=== PATIENT | male | born 1955 | race African-American/Black ===

== ENCOUNTER 2018-06-05 11:42 | Emergency (ER) | payer MEDICAID, OTHER ==
[~2018-06-05] VITALS: Ht 193 cm; Wt 77.3 kg
[2018-06-05] MEDS ORDERED: LORazepam 1 MG tablet PO ONE (11:55)
[2018-06-05 12:07] LABS: BASOPHILS % (AUTO) 0.3 % (0-1); EOSINOPHILS % (AUTO) 0.6 % (0-6); HEMATOCRIT 39.5 % (42.0-52.0); HEMOGLOBIN 13.1 g/dl (14.0-17.9); LYMPHOCYTES # (AUTO) 0.7 X10'3 (1.1-4.8); LYMPHOCYTES % (AUTO) 9.8 % (21-51); MEAN CORPUSCULAR HEMOGLOBIN 29.4 PG (27.0-31.0); MEAN CORPUSCULAR VOLUME 88.9 FL (78-98); MEAN PLATELET VOLUME 8.2 FL (7.4-10.4); MONOCYTES # (AUTO) 0.2 X10'3 (0-0.9); MONOCYTES % (AUTO) 3.1 % (2-12); NEUTROPHILS # (AUTO) 6.2 X10'3 (1.8-7.7); NEUTROPHILS % (AUTO) 86.2 % (42-75); PLATELET COUNT 209 X10'3 (140-440); RED BLOOD COUNT 4.45 X10'6 (4.70-6.10); RED CELL DISTRIBUTION WIDTH 15.5 % (11.5-14.5); WHITE BLOOD COUNT 7.2 X10'3 (4.5-11.0)
[2018-06-05 12:24] LABS: ALANINE AMINOTRANSFERASE 28 U/L (12-78); ALBUMIN 3.8 G/DL (3.4-5.0); ALBUMIN/GLOBULIN RATIO 0.8 (1.1-1.5); ALKALINE PHOSPHATASE 66 IU/L (46-116); ANION GAP 9 (8-16); ASPARTATE AMINO TRANSFERASE 27 U/L (10-37); BILIRUBIN,TOTAL 0.3 MG/DL (0.1-1.0); BLOOD UREA NITROGEN 20 MG/DL (7-18); CALCIUM 9.4 MG/DL (8.5-10.1); CHLORIDE 103 MMOL/L (99-107); CREATININE 1.05 MG/DL (0.60-1.10); GLUCOSE 167 MG/DL (70-104); POTASSIUM 3.7 MMOL/L (3.5-5.1); SODIUM 141 MMOL/L (135-145); TOTAL CARBON DIOXIDE 29.5 MMOL/L (24-32); TOTAL PROTEIN 8.3 G/DL (6.4-8.2); eGFR 72 ML/MIN
[2018-06-05 12:33] LABS: ETHANOL < 0.010 GM/DL (0.0-0.010)
[2018-06-05] MEDS: OLANZapine 2.5MG tablet PO SCH (14:11)
[2018-06-05 14:40] LABS: CLARITY,URINE CLEAR (Clear); COLOR,URINE YELLOW (Yellow); GLUCOSE, URINE NEGATIVE (Neg); KETONES,URINE NEGATIVE (Neg); LEUKOCYTE ESTERASE ,URINE NEGATIVE (Neg); NITRITES, URINE NEGATIVE (Neg); OCCULT BLOOD,URINE NEGATIVE (Neg); PH,URINE 6.5 (4.8-8.0); PROTEIN,URINE 30 mg/dl (Neg); UROBILINOGEN,URINE 0.2 E.U/dL (0.2-1.0)
[2018-06-05 14:43] LABS: UA COLLECTION TYPE CLN CATCH MIDSTREAM
[2018-06-05 14:49] LABS: BACTERIA,URINE FEW /HPF (Neg); RBC,URINE 0-2 /HPF (0-2); SQUAMOUS EPITHELIAL CELL,UR FEW /LPF (FEW); WBC,URINE 0-4 /HPF (0-4)
[2018-06-05 15:00] LABS: URINE AMPHETAMINE SCREEN NEGATIVE (Neg); URINE BARBITUATE SCREEN NEGATIVE (Neg); URINE BENZODIAZEPINES SCREEN NEGATIVE (Neg); URINE CANNABINOID SCREEN NEGATIVE (Neg); URINE COCAINE SCREEN NEGATIVE (Neg); URINE METHADONE SCREEN NEGATIVE (Neg); URINE OPIATE SCREEN NEGATIVE (Neg); URINE PHENCYCLIDINE SCREEN NEGATIVE (Neg)
--- NOTE | 2018-06-05 18:31 | NUR ---
pt has been sleeping most of day. has been cooperative, polite. now eating dinner.
--- NOTE | 2018-06-05 18:40 | NUR ---
pt ate all of his dinner, then an additional turkey sandwich.
--- NOTE | 2018-06-05 19:31 | NUR ---
pt is resting in bed quietly
--- NOTE | 2018-06-06 02:54 | NUR ---
Patient continues to sleep comfortably on his right side.
--- NOTE | 2018-06-06 04:42 | NUR ---
Patient continues to sleep comfortably.
--- NOTE | 2018-06-06 05:37 | NUR ---
No change. Patient continues to sleep.
--- NOTE | 2018-06-06 08:00 | NUR ---
Pt eating breakfast with no distress noted.
[2018-06-06] MEDS: OLANZapine 2.5MG tablet PO SCH (08:29)
--- NOTE | 2018-06-06 10:00 | NUR ---
Pt sleeping on right side.
--- NOTE | 2018-06-06 11:20 | NUR ---
Pt adjusting bed, no distress noted.
[2018-06-06] MEDS ORDERED: AMLO10TA PO (11:41)
--- NOTE | 2018-06-06 12:30 | NUR ---
Pt eating lunch without any issues.
--- NOTE | 2018-06-06 14:00 | NUR ---
Pt sleeping on left side no distress noted.
--- NOTE | 2018-06-06 16:00 | NUR ---
Pt sleeping on back no distress noted.
--- NOTE | 2018-06-06 17:02 | NUR ---
Pt sent over to [facility] no issues noted.
--- NOTE | 2018-06-06 17:15 | NUR ---
Accepted patient from [facility]. Report given to Jayesh WHARTON by Benito Correa RN.
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
--- NOTE | 2018-06-06 22:27 | NUR ---
PT RESTING IN BED ON RIGHT SIDE. NO S/S OF DISTRESS OR PAIN. WILL CONTINUE TO MONITOR.
--- NOTE | 2018-06-07 00:07 | NUR ---
Patient is resting in bed with no s/s of distress or pain. Will continue to monitor.
--- NOTE | 2018-06-07 01:08 | NUR ---
pt got up to use restroom, then back to bed. pt is lying on left side resting quietly. rr normal, unlabored.
--- NOTE | 2018-06-07 03:59 | NUR ---
pt is up to use restroom, then back to bed.
--- NOTE | 2018-06-07 05:02 | NUR ---
pt appears to be sleeping, lying on left side. breathing is normal, will continue to monitor.
[2018-06-07 05:46] VITALS: BP 136/88
--- NOTE | 2018-06-07 06:30 | NUR ---
Patient up to BR, ambulatory, steady gait and then back to bed laying on right side. No distress observed. Continue to monitor.
--- NOTE | 2018-06-07 07:50 | NUR ---
Patient up and asking about breakfast. RN states he will have breakfast soon. Continue to monitor.
[2018-06-07] MEDS: OLANZapine 2.5MG tablet PO SCH (08:55)
--- NOTE | 2018-06-07 09:55 | NUR ---
Patient sleeping on left side. No distress observed. Continue to monitor.
--- NOTE | 2018-06-07 11:51 | NUR ---
Patient sleeping supine. No distress observed. Continue to monitor.
--- NOTE | 2018-06-07 13:19 | NUR ---
relieving RN for lunch, pt is eating lunch, claudine well, no n/v
--- NOTE | 2018-06-07 13:37 | NUR ---
pt has been accepted at [facility] by Dr Goodrich, [facility] parts driver will be here approx [phone]
[2018-06-07] MEDS ORDERED: amLODIPine 5mg tablet PO ONE (20:00)
[2018-06-08] MEDS ORDERED: amLODIPine 5mg tablet PO SCH (08:00)
== END 2018-06-07 14:32 ==
LOC: ER 11:42
DX: F25.0 Schizoaffective disorder, bipolar type (principal); F60.0 Paranoid personality disorder; F22 Delusional disorders; R00.0 Tachycardia, unspecified; Z59.0 Homelessness; Z88.8 Allergy status to other drugs, medicaments and biological substances
CPT/HCPCS: 36415; 80053; 80305; 80320; 81001; 84443; 85025; 99285

== ENCOUNTER 2018-09-30 12:41 | Inpatient (IN) | payer MEDICAID ==
[~2018-09-30] VITALS: Ht 193 cm; Wt 83.2 kg
[~2018-09-30 12:41] MED LIST: AMLO10TA PO
[2018-09-30] MEDS ORDERED: loperamide 2mg capsule PO PRN (15:15)
[2018-09-30] MEDS ORDERED: acetaminophen 325mg tablet PO PRN ×2 (15:15)
[2018-09-30] MEDS ORDERED: magnesium hydroxide 30ml (MOM) UD suspension PO PRN (15:15)
[2018-09-30] MEDS ORDERED: mag hydrox/Alum hydrox/simeth 30ml oral suspension PO PRN (15:15)
[2018-09-30] MEDS ORDERED: tuberculin, purif. prot. deriv. 5 units/0.1ml ID ONE (15:15)
[2018-09-30 17:08] VITALS: BP 151/98
[2018-09-30] MEDS ORDERED: ARIP400S3 IM (17:15)
[2018-09-30] MEDS ORDERED: OLAN20TA3 PO (17:15)
[2018-09-30] MEDS ORDERED: QUET25TA PO (17:15)
[2018-09-30] MEDS ORDERED: QUET50TA PO (17:15)
[2018-09-30] MEDS ORDERED: PROP40TA72 PO (17:17)
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
[2018-09-30 19:55] VITALS: BP 120/78
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
[2018-10-01 07:00] VITALS: BP 134/87
[2018-10-01 07:32] LABS: CHOLESTEROL 176 MG/DL (0-200); HDL CHOLESTEROL 59 MG/DL (35-60); LDL CHOLESTEROL 107 MG/DL (50-100); TRIGLYCERIDES 50 MG/DL (20-135)
[2018-10-01 07:58] LABS: HEMOGLOBIN A1C 5.4 % (4.5-6.2)
[2018-10-01 08:00] VITALS: BP 134/87
[2018-10-01] MEDS: amLODIPine 5mg tablet PO SCH (08:54)
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
[2018-10-01] MEDS ORDERED: tuberculin, purif. prot. deriv. 5 units/0.1ml ID ONE (14:40)
[2018-10-01 20:00] VITALS: BP 143/87
[2018-10-01] MEDS: risperiDONE 0.5mg tablet PO SCH (20:41)
[2018-10-01] MEDS ORDERED: QUEtiapine 25mg tablet PO SCH (21:00)
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
[2018-10-02 07:17] VITALS: BP 126/80
[2018-10-02] MEDS: HYDROchlorothiazide 12.5mg capsule PO SCH (08:07)
[2018-10-02] MEDS: amLODIPine 5mg tablet PO SCH (08:07)
[2018-10-02] MEDS: propranolol 40mg tablet PO SCH (08:08)
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
[2018-10-02 20:03] VITALS: BP 131/85
[2018-10-02] MEDS: risperiDONE 0.5mg tablet PO SCH (20:25)
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
[2018-10-03 07:05] VITALS: BP 126/87
[2018-10-03] MEDS: propranolol 40mg tablet PO SCH (08:21)
[2018-10-03] MEDS: amLODIPine 5mg tablet PO SCH (08:21)
[2018-10-03] MEDS: HYDROchlorothiazide 12.5mg capsule PO SCH (08:21)
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
[2018-10-03 20:00] VITALS: BP 127/81
[2018-10-03] MEDS: hydrOXYzine 25 MG tablet PO PRN (20:35)
[2018-10-03] MEDS ORDERED: risperiDONE 0.5mg tablet PO SCH (21:00)
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
[2018-10-04] MEDS: amLODIPine 5mg tablet PO SCH (07:45)
[2018-10-04] MEDS: HYDROchlorothiazide 12.5mg capsule PO SCH (07:45)
[2018-10-04] MEDS: propranolol 40mg tablet PO SCH (07:45)
[2018-10-04 08:00] VITALS: BP 128/77
[2018-10-04] MEDS: LORazepam 1 MG tablet PO PRN ×2 (13:43→20:42)
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
[2018-10-04] MEDS ORDERED: risperiDONE 2mg tablet PO SCH (20:00)
[2018-10-04] MEDS: hydrocortisone 1% cream 28gm TP SCH (20:32)
[2018-10-04] MEDS: olanzapine 10mg tablet PO SCH (20:32)
[2018-10-04 20:38] VITALS: BP 139/90
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
[2018-10-05 07:24] VITALS: BP 131/85
[2018-10-05] MEDS: risperiDONE 2mg tablet PO SCH (07:29)
[2018-10-05] MEDS: HYDROchlorothiazide 12.5mg capsule PO SCH (07:30)
[2018-10-05] MEDS: hydrocortisone 1% cream 28gm TP SCH ×2 (07:30→20:18)
[2018-10-05] MEDS: amLODIPine 5mg tablet PO SCH (07:30)
[2018-10-05] MEDS: propranolol 40mg tablet PO SCH (07:30)
[2018-10-05] MEDS ORDERED: risperiDONE 0.5mg tablet PO SCH (08:00)
[2018-10-05] MEDS ORDERED: aripiprazole 400mg suspension ER syringe IM SCH (09:00)
--- NOTE | 2018-10-05 16:00 | NUR ---
Discharge Planning: Barbra from [facility] Office phoned requesting status update on pt. This expert medical writer answered her questions and provided current treatment and progress status information on pt. Alpa Holloway, [facility]
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
[2018-10-05] MEDS: olanzapine 10mg tablet PO SCH (20:18)
[2018-10-05] MEDS: hydrOXYzine 25 MG tablet PO PRN (20:19)
[2018-10-05 20:20] VITALS: BP 133/89
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
[2018-10-06 07:41] VITALS: BP 122/76
[2018-10-06] MEDS: amLODIPine 5mg tablet PO SCH (07:44)
[2018-10-06] MEDS: propranolol 40mg tablet PO SCH (07:45)
[2018-10-06] MEDS: HYDROchlorothiazide 12.5mg capsule PO SCH (07:45)
[2018-10-06] MEDS: risperiDONE 2mg tablet PO SCH (07:45)
[2018-10-06] MEDS: hydrocortisone 1% cream 28gm TP SCH ×2 (07:46→20:49)
[2018-10-06] MEDS ORDERED: risperiDONE 0.25mg tablet PO ONE (08:00)
[2018-10-06] MEDS ORDERED: risperiDONE 0.5mg tablet PO ONE (09:10)
--- NOTE | 2018-10-06 13:02 | NUR ---
Initial: Pt admit with psychosis. Pt currently on regular diet with documented 75-100% PO intake meeting nutrient needs. [facility] 10/06. No edema or wounds. No nutrition diagnosis at this time. Will continue to follow. Recommendations: 1) Continue regular diet 2) Weekly wt Addendum: 10/06/18 at [address] Amended: Links added.
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
[2018-10-06] MEDS: hydrOXYzine 25 MG tablet PO PRN (16:58)
[2018-10-06 20:00] VITALS: BP 113/75
[2018-10-06] MEDS: olanzapine 10mg tablet PO SCH (20:49)
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
[2018-10-07 07:55] VITALS: BP 125/80
[2018-10-07] MEDS: hydrocortisone 1% cream 28gm TP SCH ×2 (08:00→20:00)
[2018-10-07] MEDS: amLODIPine 5mg tablet PO SCH (08:01)
[2018-10-07] MEDS: HYDROchlorothiazide 12.5mg capsule PO SCH (08:01)
[2018-10-07] MEDS: propranolol 40mg tablet PO SCH (08:02)
[2018-10-07] MEDS: risperiDONE 2mg tablet PO SCH (08:02)
--- NOTE | 2018-10-07 09:57 | NUR ---
REFERRAL: SW faxed completed packet to [facility] for pt transition to lower level of continuing care. SW placed referral and fax confirmation in front of pt medical chart for easy access and reference. Late note entry for 10/04/2018 Rajani Corona, Arcade Game Technician JUNIOR BOOKKEEPER [id number] Supervised by Alfredo Gold, [id number]
--- NOTE | 2018-10-07 10:01 | NUR ---
[facility] REFERRAL: SW informed pt would be staffed for Whole Person Care on 10/09/2018, per Myesha Lewis. Rajani Corona, Metal Mold Dresser HIGH SCHOOL LIBRARY MEDIA SPECIALIST [id number] Supervised by Alfredo Gold, [id number]
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
[2018-10-07 19:55] VITALS: BP 123/79
[2018-10-07] MEDS: olanzapine 10mg tablet PO SCH (21:09)
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
[2018-10-08 07:30] VITALS: BP 133/81
[2018-10-08] MEDS: HYDROchlorothiazide 12.5mg capsule PO SCH (07:40)
[2018-10-08] MEDS: amLODIPine 5mg tablet PO SCH (07:40)
[2018-10-08] MEDS: propranolol 40mg tablet PO SCH (07:40)
[2018-10-08] MEDS: risperiDONE 2mg tablet PO SCH (07:44)
[2018-10-08] MEDS: hydrocortisone 1% cream 28gm TP SCH ×2 (08:00→20:00)
--- NOTE | 2018-10-08 14:43 | NUR ---
[facility] REFERRAL: SHERITA contacted Fernanda at [facility] at [phone], who reports a bed will be available for pt on , October 11 for pt. SHERITA informed provider, who plans to begin IM medication for pt within next 24-48 hours. Per Fernanda, pt admission to [facility] should be planned for morning. Rajani Corona, Well Service Floor Worker SPECIAL EDUCATION RESOURCE ROOM TEACHER [id number] Supervised by Alfredo Gold, [id number]
[2018-10-08] MEDS ORDERED: [UNRECOGNIZED DRUG - OTHER] IM ONE (15:40)
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
[2018-10-08 20:00] VITALS: BP 136/92
[2018-10-08] MEDS: olanzapine 10mg tablet PO SCH (20:54)
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
[2018-10-09 07:07] VITALS: BP 126/79
[2018-10-09] MEDS: propranolol 40mg tablet PO SCH (07:56)
[2018-10-09] MEDS: HYDROchlorothiazide 12.5mg capsule PO SCH (07:57)
[2018-10-09] MEDS: amLODIPine 5mg tablet PO SCH (07:58)
[2018-10-09] MEDS: risperiDONE 0.5mg tablet PO SCH (07:58)
[2018-10-09] MEDS: hydrocortisone 1% cream 28gm TP SCH ×2 (08:00→20:00)
[2018-10-09] MEDS ORDERED: [UNRECOGNIZED DRUG - OTHER] IM ONE (09:00)
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
[2018-10-09] MEDS: LORazepam 1 MG tablet PO PRN (18:14)
[2018-10-09 20:00] VITALS: BP 116/68
[2018-10-09] MEDS: olanzapine 10mg tablet PO SCH (21:02)
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
[2018-10-10] MEDS: propranolol 40mg tablet PO SCH (07:46)
[2018-10-10] MEDS: HYDROchlorothiazide 12.5mg capsule PO SCH (07:47)
[2018-10-10] MEDS: amLODIPine 5mg tablet PO SCH (07:47)
[2018-10-10] MEDS: risperiDONE 0.5mg tablet PO SCH (07:47)
[2018-10-10 08:00] VITALS: BP 137/91
[2018-10-10] MEDS: hydrocortisone 1% cream 28gm TP SCH ×2 (08:00→20:00)
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
[2018-10-10 20:42] VITALS: BP 113/70
[2018-10-10] MEDS: olanzapine 10mg tablet PO SCH (21:04)
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
[2018-10-11 07:31] VITALS: BP 133/88
[2018-10-11] MEDS: HYDROchlorothiazide 12.5mg capsule PO SCH (07:39)
[2018-10-11] MEDS: propranolol 40mg tablet PO SCH (07:39)
[2018-10-11] MEDS: hydrocortisone 1% cream 28gm TP SCH (07:40)
[2018-10-11] MEDS: amLODIPine 5mg tablet PO SCH (07:40)
[2018-10-11] MEDS: risperiDONE 0.5mg tablet PO SCH (07:40)
[2018-10-11] MEDS ORDERED: AMLO10TA PO (08:06)
[2018-10-11] MEDS ORDERED: HYDR12.5 PO (08:06)
[2018-10-11] MEDS ORDERED: RISP3TAB3 PO ×2 (08:06)
[2018-10-11] MEDS ORDERED: PROP40TA72 PO (08:06)
--- NOTE | 2018-10-11 11:35 | NUR ---
DISCHARGE NOTE The patient was discharged at 1135. 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 He stated he was not having any SI, HI, or any hallucinations. He was picked up by the [facility] and taken to [facility]. He stated he was ready and eager to go to [facility] and looking forward to the future with "good thoughts."
== END 2018-10-11 11:35 | disposition short-term general hospital (02) | DRG 750 ==
LOC: ADULT MH 12:41
PROVIDERS: ADMIT Psychiatry & Neurology Psychiatry; ATTEND Psychiatry & Neurology Psychiatry
DX: F20.0 Paranoid schizophrenia (principal); R45.851 Suicidal ideations; Z59.0 Homelessness; F15.10 Other stimulant abuse, uncomplicated; F31.9 Bipolar disorder, unspecified; F60.0 Paranoid personality disorder; D64.9 Anemia, unspecified; I10 Essential (primary) hypertension; Y92.89 Other specified places as the place of occurrence of the external cause; Z63.8 Other specified problems related to primary support group; Z79.899 Other long term (current) drug therapy; Z88.8 Allergy status to other drugs, medicaments and biological substances
CPT/HCPCS: 36415; 80061; 83036; 87081; 99285; J2794; Q0177

== ENCOUNTER 2019-01-26 16:08 | Emergency (ER) | payer MEDICAID ==
[~2019-01-26] VITALS: Ht 193 cm; Wt 81.8 kg
[~2019-01-26 16:08] MED LIST changes: +HYDR12.5 PO; +PROP40TA72 PO; +RISP3TAB3 PO
[2019-01-26 16:11] VITALS: BP 142/97
[2019-01-26] MEDS ORDERED: ibuprofen tablet 400 MG TABLET PO ONE (17:45)
== END 2019-01-26 19:36 | disposition home or self-care (01) ==
LOC: ER 16:09
DX: M25.531 Pain in right wrist (principal); I10 Essential (primary) hypertension; Z59.0 Homelessness; Z56.0 Unemployment, unspecified; Z79.899 Other long term (current) drug therapy; Z88.8 Allergy status to other drugs, medicaments and biological substances; W18.30XA Fall on same level, unspecified, initial encounter; Y93.01 Activity, walking, marching and hiking; Y92.89 Other specified places as the place of occurrence of the external cause; Y99.9 Unspecified external cause status
CPT/HCPCS: 29125; 73110; 99284

== ENCOUNTER 2019-02-06 09:48 | Inpatient (IN) | payer MEDICAID ==
[~2019-02-06] VITALS: Ht 193 cm; Wt 75.7 kg
[2019-02-06 10:34] LABS: CLARITY,URINE CLEAR (Clear); COLOR,URINE YELLOW (Yellow); GLUCOSE, URINE NEGATIVE (Neg); KETONES,URINE NEGATIVE (Neg); LEUKOCYTE ESTERASE ,URINE NEGATIVE (Neg); NITRITES, URINE NEGATIVE (Neg); OCCULT BLOOD,URINE NEGATIVE (Neg); PROTEIN,URINE TRACE mg/dl (Neg)
[2019-02-06 10:39] LABS: UA COLLECTION TYPE CLN CATCH MIDSTREAM
[2019-02-06 10:41] LABS: MUCUS STRANDS MODERATE /LPF (Neg); RBC,URINE NONE SEEN /HPF (0-2); SQUAMOUS EPITHELIAL CELL,UR FEW /LPF (FEW)
[2019-02-06 10:44] LABS: ALANINE AMINOTRANSFERASE 66 U/L (12-78); ALBUMIN 3.5 G/DL (3.4-5.0); ALBUMIN/GLOBULIN RATIO 0.9 (1.1-1.5); ALKALINE PHOSPHATASE 75 IU/L (46-116); ANION GAP 6 (8-16); ASPARTATE AMINO TRANSFERASE 68 U/L (10-37); BILIRUBIN,TOTAL 0.4 MG/DL (0.1-1.0); BLOOD UREA NITROGEN 19 MG/DL (7-18); BUN/CREATININE RATIO 19.6 (5.4-32.0); CHLORIDE 107 MMOL/L (99-107); CREATININE 0.97 MG/DL (0.60-1.10); GLUCOSE 83 MG/DL (70-104); POTASSIUM 3.4 MMOL/L (3.5-5.1); SODIUM 141 MMOL/L (135-145); TOTAL CARBON DIOXIDE 27.6 MMOL/L (24-32); TOTAL PROTEIN 7.4 G/DL (6.4-8.2); eGFR > 90 ML/MIN
[2019-02-06 10:45] LABS: BASOPHILS % (AUTO) 0.3 % (0-1); EOSINOPHILS # (AUTO) 0.1 X10'3 (0-0.9); EOSINOPHILS % (AUTO) 1.3 % (0-6); HEMATOCRIT 35.1 % (42.0-52.0); HEMOGLOBIN 11.7 g/dl (14.0-17.9); LYMPHOCYTES # (AUTO) 0.9 X10'3 (1.1-4.8); LYMPHOCYTES % (AUTO) 19.3 % (21-51); MEAN CORPUSCULAR HEMOGLOBIN 29.9 PG (27.0-31.0); MEAN CORPUSCULAR HGB CONC 33.3 g/dL (33.0-36.5); MEAN CORPUSCULAR VOLUME 89.9 FL (78-98); MEAN PLATELET VOLUME 8.1 FL (7.4-10.4); MONOCYTES # (AUTO) 0.4 X10'3 (0-0.9); NEUTROPHILS # (AUTO) 3.1 X10'3 (1.8-7.7); NEUTROPHILS % (AUTO) 70.1 % (42-75); PLATELET COUNT 201 X10'3 (140-440); RED BLOOD COUNT 3.91 X10'6 (4.70-6.10); RED CELL DISTRIBUTION WIDTH 15.5 % (11.5-14.5); WHITE BLOOD COUNT 4.5 X10'3 (4.5-11.0)
[2019-02-06] MEDS ORDERED: amLODIPine 5mg tablet PO ONE (12:15)
[2019-02-06] MEDS ORDERED: propranolol 10mg tablet PO ONE (12:15)
[2019-02-06] MEDS ORDERED: normal saline 1000ml 1,000 ML IV ONE (12:17)
[2019-02-06] MEDS ORDERED: normal saline 1000ML IV soln IVB ONE (12:20)
[2019-02-06] MEDS ORDERED: MULT-1172 PO (12:42)
[2019-02-06] MEDS ORDERED: PROP40TA7 PO (12:42)
[2019-02-06] MEDS ORDERED: AMLO-314 PO (12:43)
[2019-02-06] MEDS ORDERED: magnesium 4gm in 100ml NS 100 ML IV PRN (12:55)
[2019-02-06] MEDS ORDERED: potassium Cl 20 mEq SR tablet PO PRN ×2 (12:55)
[2019-02-06] MEDS ORDERED: magnesium hydroxide 30ml (MOM) UD suspension PO PRN (12:55)
[2019-02-06] MEDS ORDERED: acetaminophen 650mg rectal suppository RC PRN (12:55)
[2019-02-06] MEDS ORDERED: mag hydrox/Alum hydrox/simeth 30ml oral suspension PO PRN (12:55)
[2019-02-06] MEDS ORDERED: acetaminophen 325mg tablet PO PRN ×2 (12:55)
[2019-02-06] MEDS ORDERED: magnesium Cl slow-release 64mg tablet PO PRN (12:55)
[2019-02-06] MEDS ORDERED: potassium CL 10mEq/100ml bag 100 ML IV PRN ×2 (12:55)
[2019-02-06] MEDS ORDERED: ondansetron/PF 4mg/2ml inj IV PRN (12:55)
[2019-02-06] MEDS ORDERED: metoclopramide 5 mg/ml inj IV PRN (12:55)
[2019-02-06] MEDS ORDERED: magnesium 2GM in 50ml NS 50 ML IV PRN (12:55)
[2019-02-06 13:25] LABS: URINE AMPHETAMINE SCREEN POSITIVE (Neg); URINE BARBITUATE SCREEN NEGATIVE (Neg); URINE BENZODIAZEPINES SCREEN NEGATIVE (Neg); URINE CANNABINOID SCREEN NEGATIVE (Neg); URINE COCAINE SCREEN NEGATIVE (Neg); URINE METHADONE SCREEN NEGATIVE (Neg); URINE OPIATE SCREEN NEGATIVE (Neg); URINE PHENCYCLIDINE SCREEN NEGATIVE (Neg)
[2019-02-06 14:08] LABS: ETHANOL < 0.010 GM/DL (0.0-0.010)
--- NOTE | 2019-02-06 16:26 | NUR ---
Patient in room PCU 3017. I have received report from Kaity and had the opportunity to ask questions and assume patient care. Patient was hooked up to tele and vital signs were obtained. Patient is resting comfortably at this time. 2 RN skin check completed.
[2019-02-06 16:44] VITALS: BP 164/108
--- NOTE | 2019-02-06 18:07 | NUR ---
Problems reprioritized. Patient report given, questions answered & plan of care reviewed with Nicole.
--- NOTE | 2019-02-06 18:31 | NUR ---
Patient in room PCU 3017. I have received report from DIO Banks and had the opportunity to ask questions and assume patient care.
[2019-02-06 19:00] VITALS: BP 159/107
--- NOTE | 2019-02-06 19:29 | NUR ---
Doctor Diandra was called and notified for BP 164/108 @1644 and 159/107 @ 1800. I told him there are no PRNs available and he said, "Alright, and no problem." Patient has strong pulses, A&Ox4 and denies dizziness or headache.
[2019-02-06 20:00] VITALS: BP_SYST 102; BP_SYST 104; BP_SYST 95; BP_DIAS 64; BP_DIAS 69; BP_DIAS 78
[2019-02-06] MEDS ORDERED: temazepam 15mg capsule PO PRN (21:00)
[2019-02-06 22:00] VITALS: BP 122/76
[2019-02-07 02:00] VITALS: BP_SYST 102; BP_SYST 104; BP_SYST 119; BP_SYST 95; BP_DIAS 64; BP_DIAS 69; BP_DIAS 78; BP_DIAS 84
[2019-02-07 04:13] VITALS: BP 104/78
[2019-02-07 05:45] LABS: HEMATOCRIT 36.2 % (42.0-52.0); HEMOGLOBIN 12.1 g/dl (14.0-17.9); MEAN CORPUSCULAR HGB CONC 33.5 g/dL (33.0-36.5); MEAN CORPUSCULAR VOLUME 89.6 FL (78-98); MEAN PLATELET VOLUME 8.6 FL (7.4-10.4); PLATELET COUNT 205 X10'3 (140-440); RED BLOOD COUNT 4.04 X10'6 (4.70-6.10); RED CELL DISTRIBUTION WIDTH 15.6 % (11.5-14.5)
[2019-02-07 06:00] VITALS: BP 135/93
[2019-02-07 06:04] LABS: ALBUMIN 3.1 G/DL (3.4-5.0); ANION GAP 5 (8-16); BLOOD UREA NITROGEN 15 MG/DL (7-18); BUN/CREATININE RATIO 16.5 (5.4-32.0); CALCIUM 8.7 MG/DL (8.5-10.1); CHLORIDE 107 MMOL/L (99-107); CHOL/HDL RATIO 2.7 (0.00-4.99); CHOLESTEROL 155 MG/DL (0-200); CREATININE 0.91 MG/DL (0.60-1.10); GLUCOSE 75 MG/DL (70-104); HDL CHOLESTEROL 58 MG/DL (35-60); LDL CHOLESTEROL 91 MG/DL (50-100); MAGNESIUM 1.7 MG/DL (1.5-2.4); PHOSPHORUS 3.3 MG/DL (2.3-4.5); POTASSIUM 3.4 MMOL/L (3.5-5.1); SODIUM 141 MMOL/L (135-145); TRIGLYCERIDES 37 MG/DL (20-135); eGFR > 90 ML/MIN
--- NOTE | 2019-02-07 06:15 | NUR ---
Patient in room PCU 3017. I have received report from Nicole WHARTON and had the opportunity to ask questions and assume patient care.
--- NOTE | 2019-02-07 06:20 | NUR ---
Problems reprioritized. Patient report given, questions answered & plan of care reviewed with DIO Maya.
[2019-02-07] MEDS ORDERED: propranolol 10mg tablet PO SCH (08:00)
[2019-02-07] MEDS ORDERED: enoxaparin 40mg/0.4ml syringe SQ SCH (08:00)
[2019-02-07] MEDS ORDERED: amLODIPine 5mg tablet PO SCH (08:00)
[2019-02-07] MEDS ORDERED: K and/or MAG REPLACEMENT MC SCH (08:00)
[2019-02-07] MEDS ORDERED: ringers solution, lacted 1,000 ML IV SCH (09:00)
[2019-02-07] MEDS ORDERED: ringers solution, lacted 1,000 ML IV ONE (10:00)
--- NOTE | 2019-02-07 11:30 | NUR ---
Pt DC'd. PIV removed, canula intact. Tele-box removed and returned to [facility]. Pt stable and vitals WNL at IN. Nurse went over DC paperwork with Pt and allowed pt to ask questions and then answer them. No new meds prescribed for Pt. Pt is homeless and stated that he will follow up with the ledger van as needed. Pt has monthly appointments with [facility] to receive IM injection of Psych medication. Pt stated he will follow up with [facility] for his monthly IM injections. Bus pass given to Pt for transportation. Pt's belongings gathered and sent with Pt. Pt wheeled down to lobby in wheelchair and left via bus.
[2019-02-07 16:19] LABS: BACTERIA,URINE NONE SEEN /HPF (Neg)
== END 2019-02-07 13:22 | disposition home or self-care (01) | DRG 812 ==
LOC: ER 09:49 → ED HOLD 13:20 → OBSVTOIN 13:20 → PCU 3S 15:14
PROVIDERS: ADMIT Family Medicine; ATTEND Family Medicine
PROC: 4A10X4Z Monitoring of Central Nervous Electrical Activity, External Approach (ICD-10-PCS; principal; 2019-02-07)
DX: T43.621A Poisoning by amphetamines, accidental (unintentional), initial encounter (principal); F20.9 Schizophrenia, unspecified; R45.851 Suicidal ideations; I95.1 Orthostatic hypotension; D64.9 Anemia, unspecified; E86.0 Dehydration; E87.6 Hypokalemia; F15.10 Other stimulant abuse, uncomplicated; F31.9 Bipolar disorder, unspecified; I10 Essential (primary) hypertension; R47.81 Slurred speech; R79.89 Other specified abnormal findings of blood chemistry; Z59.0 Homelessness; Z88.8 Allergy status to other drugs, medicaments and biological substances; Z56.0 Unemployment, unspecified; Y92.89 Other specified places as the place of occurrence of the external cause
CPT/HCPCS: 36415; 70450; 71045; 80048; 80053; 80061; 80305; 80320; 81001; 82948; 83735; 84100; 84443; 84484; 85025; 85027; 87081; 87088; 93005; 93306; 93880; 95816; 96360; 99285; G0378; J1650; J7120

== ENCOUNTER 2019-02-17 22:03 | Emergency (ER) | payer MEDICAID ==
[~2019-02-17] VITALS: Ht 193 cm; Wt 81.8 kg
[~2019-02-17 22:03] MED LIST changes: +AMLO-314 PO; -AMLO10TA PO; -HYDR12.5 PO; +MULT-1172 PO; +PROP40TA7 PO; -PROP40TA72 PO; -RISP3TAB3 PO
[2019-02-17 23:15] LABS: BASOPHILS # (AUTO) 0.1 X10'3 (0-0.2); BASOPHILS % (AUTO) 1.3 % (0-1); EOSINOPHILS # (AUTO) 0.1 X10'3 (0-0.9); EOSINOPHILS % (AUTO) 2.2 % (0-6); HEMATOCRIT 34.4 % (42.0-52.0); HEMOGLOBIN 11.6 g/dl (14.0-17.9); LYMPHOCYTES % (AUTO) 22.9 % (21-51); MEAN CORPUSCULAR HEMOGLOBIN 30.3 PG (27.0-31.0); MEAN CORPUSCULAR HGB CONC 33.8 g/dL (33.0-36.5); MEAN CORPUSCULAR VOLUME 89.6 FL (78-98); MONOCYTES # (AUTO) 0.4 X10'3 (0-0.9); MONOCYTES % (AUTO) 10.2 % (2-12); NEUTROPHILS # (AUTO) 2.7 X10'3 (1.8-7.7); NEUTROPHILS % (AUTO) 63.4 % (42-75); PLATELET COUNT 217 X10'3 (140-440); RED BLOOD COUNT 3.84 X10'6 (4.70-6.10); RED CELL DISTRIBUTION WIDTH 15.1 % (11.5-14.5); WHITE BLOOD COUNT 4.3 X10'3 (4.5-11.0)
[2019-02-17 23:32] LABS: ALANINE AMINOTRANSFERASE 79 U/L (12-78); ALBUMIN 3.5 G/DL (3.4-5.0); ALBUMIN/GLOBULIN RATIO 1.1 (1.1-1.5); ALKALINE PHOSPHATASE 73 IU/L (46-116); ANION GAP 9 (8-16); ASPARTATE AMINO TRANSFERASE 105 U/L (10-37); BILIRUBIN,TOTAL 0.5 MG/DL (0.1-1.0); BLOOD UREA NITROGEN 27 MG/DL (7-18); CALCIUM 8.8 MG/DL (8.5-10.1); CHLORIDE 106 MMOL/L (99-107); CREATININE 1.35 MG/DL (0.60-1.10); GLUCOSE 88 MG/DL (70-104); POTASSIUM 3.7 MMOL/L (3.5-5.1); SODIUM 141 MMOL/L (135-145); TOTAL CARBON DIOXIDE 26.4 MMOL/L (24-32); TOTAL PROTEIN 6.8 G/DL (6.4-8.2); eGFR 65 ML/MIN
[2019-02-17 23:33] LABS: ETHANOL < 0.010 GM/DL (0.0-0.010)
--- NOTE | 2019-02-17 23:53 | NUR ---
Pt. in shaq, asleep. No needs at this time.
[2019-02-18 00:35] LABS: URINE AMPHETAMINE SCREEN POSITIVE (Neg); URINE BARBITUATE SCREEN NEGATIVE (Neg); URINE BENZODIAZEPINES SCREEN NEGATIVE (Neg); URINE CANNABINOID SCREEN NEGATIVE (Neg); URINE COCAINE SCREEN NEGATIVE (Neg); URINE METHADONE SCREEN NEGATIVE (Neg); URINE OPIATE SCREEN NEGATIVE (Neg); URINE PHENCYCLIDINE SCREEN NEGATIVE (Neg)
--- NOTE | 2019-02-18 01:30 | NUR ---
ASSUMED CARE OF GRISELDA MEZA . PT AMBULATED OVER TO OVERFLOW BED 25 FROM ROOM 15 CALMLY. WARM BLANKET GIVEN PT TO LEFT SIDE RESTING RR UNLABORED WILL CONTINUE TO MONITOR AND REASSESS
--- NOTE | 2019-02-18 02:30 | NUR ---
PT SLEEPING PEACFULLY ON RIGHT SIDE RR UNLOBORED WILL CONTINUE TO MONITOR AND ASSESS
--- NOTE | 2019-02-18 03:30 | NUR ---
PT SLEEPING PEACFULLY ON HIS RIGHT SIDE. RESP UNLABORED, WILLCONTINUE TO REASSESS AND MONITOR
--- NOTE | 2019-02-18 04:32 | NUR ---
PT SLEEPING COMFORTABLY. UNLABORED RR WILL CONTINUE TO ASSESS AND MONITOR
[2019-02-18 05:48] VITALS: BP 132/91
--- NOTE | 2019-02-18 05:56 | NUR ---
PT ALSEEP ON HIS RIGHT SIDE . RESP UNLABORED WILL CONTINUE TO MONITOR AND REASSESS
--- NOTE | 2019-02-18 07:41 | NUR ---
Patient sleeping at this time, offers no complaints, will continue to monitor.
[2019-02-18] MEDS ORDERED: propranolol 40mg tablet PO SCH (08:00)
[2019-02-18] MEDS ORDERED: amLODIPine 5mg tablet PO SCH (08:00)
[2019-02-18] MEDS ORDERED: multivitamins, therapeutics tablet PO SCH (08:00)
--- NOTE | 2019-02-18 10:44 | NUR ---
Patient was awake for breakfast and took morning medications. Patient described auditory hallucinations consisting of his enemies saying they are going to get him. He then stated that he was planning to get his enemies before they get him. Patient also stated that he was tired. Patient is in RN sight at all times, will continue to monitor.
--- NOTE | 2019-02-18 11:22 | NUR ---
Eric sleeping at this time, will continue to monitor.
--- NOTE | 2019-02-18 11:24 | NUR ---
[facility] assessing the patient at this time.
--- NOTE | 2019-02-18 12:42 | NUR ---
Pt discharging with assistant case manager, all belongings were given to patient and medications were obtained from pharmacy and given to patient. Patient is currently getting dressed and will be leaving via private vehicle with assistant case manager from [facility].
== END 2019-02-18 13:07 | disposition home or self-care (01) ==
LOC: ER 22:03
DX: R45.851 Suicidal ideations (principal); F31.9 Bipolar disorder, unspecified; F20.9 Schizophrenia, unspecified; I10 Essential (primary) hypertension; F15.90 Other stimulant use, unspecified, uncomplicated; Z88.8 Allergy status to other drugs, medicaments and biological substances; Z79.899 Other long term (current) drug therapy; Z56.0 Unemployment, unspecified; Z59.0 Homelessness
CPT/HCPCS: 36415; 80053; 80305; 80320; 85025; 99284

== ENCOUNTER 2019-03-18 11:48 | Emergency (ER) | payer MEDICAID ==
[~2019-03-18] VITALS: Ht 193 cm; Wt 76.0 kg
[2019-03-18 12:26] VITALS: BP 124/88
== END 2019-03-18 14:43 | disposition home or self-care (01) ==
LOC: ER 11:48
DX: Z02.89 Encounter for other administrative examinations (principal); I10 Essential (primary) hypertension; F31.9 Bipolar disorder, unspecified; F20.9 Schizophrenia, unspecified; F15.10 Other stimulant abuse, uncomplicated; Z59.0 Homelessness; Z56.0 Unemployment, unspecified; Z88.8 Allergy status to other drugs, medicaments and biological substances; Z79.899 Other long term (current) drug therapy
CPT/HCPCS: 99281

== ENCOUNTER 2019-04-12 10:58 | Emergency (ER) | payer MEDICAID ==
[~2019-04-12] VITALS: Ht 193 cm; Wt 81.8 kg
[2019-04-12 11:45] LABS: BASOPHILS % (AUTO) 0.3 % (0-1); EOSINOPHILS # (AUTO) 0.1 X10'3 (0-0.9); EOSINOPHILS % (AUTO) 1.6 % (0-6); HEMATOCRIT 38.6 % (42.0-52.0); HEMOGLOBIN 12.7 g/dl (14.0-17.9); LYMPHOCYTES # (AUTO) 0.8 X10'3 (1.1-4.8); LYMPHOCYTES % (AUTO) 13.5 % (21-51); MEAN CORPUSCULAR HEMOGLOBIN 29.6 PG (27.0-31.0); MEAN CORPUSCULAR VOLUME 89.7 FL (78-98); MONOCYTES # (AUTO) 0.4 X10'3 (0-0.9); MONOCYTES % (AUTO) 6.9 % (2-12); NEUTROPHILS # (AUTO) 4.7 X10'3 (1.8-7.7); NEUTROPHILS % (AUTO) 77.7 % (42-75); PLATELET COUNT 213 X10'3 (140-440); RED BLOOD COUNT 4.31 X10'6 (4.70-6.10); RED CELL DISTRIBUTION WIDTH 14.8 % (11.5-14.5); WHITE BLOOD COUNT 6.1 X10'3 (4.5-11.0)
[2019-04-12 11:57] LABS: ALANINE AMINOTRANSFERASE 64 U/L (12-78); ALBUMIN 3.3 G/DL (3.4-5.0); ALBUMIN/GLOBULIN RATIO 0.9 (1.1-1.5); ALKALINE PHOSPHATASE 80 IU/L (46-116); ANION GAP 5 (8-16); ASPARTATE AMINO TRANSFERASE 52 U/L (10-37); BILIRUBIN,TOTAL 0.4 MG/DL (0.1-1.0); BLOOD UREA NITROGEN 15 MG/DL (7-18); BUN/CREATININE RATIO 11.4 (5.4-32.0); CALCIUM 8.8 MG/DL (8.5-10.1); CHLORIDE 107 MMOL/L (99-107); CREATININE 1.32 MG/DL (0.60-1.10); GLUCOSE 96 MG/DL (70-104); POTASSIUM 3.6 MMOL/L (3.5-5.1); SODIUM 143 MMOL/L (135-145); TOTAL CARBON DIOXIDE 30.8 MMOL/L (24-32); TOTAL PROTEIN 6.8 G/DL (6.4-8.2); eGFR 67 ML/MIN
[2019-04-12 12:27] VITALS: BP 150/100
== END 2019-04-12 12:56 | disposition home or self-care (01) ==
LOC: ER 10:58
DX: R42 Dizziness and giddiness (principal); I10 Essential (primary) hypertension; F31.9 Bipolar disorder, unspecified; F15.90 Other stimulant use, unspecified, uncomplicated; Z59.0 Homelessness; Z56.0 Unemployment, unspecified; Z88.8 Allergy status to other drugs, medicaments and biological substances; Z79.899 Other long term (current) drug therapy
CPT/HCPCS: 36415; 71045; 80053; 84484; 85025; 93005; 99284

== ENCOUNTER 2019-05-24 22:50 | Emergency (ER) | payer MEDICAID ==
[~2019-05-24] VITALS: Ht 193 cm; Wt 81.0 kg
--- NOTE | 2019-05-24 22:52 | NUR ---
PT REFUSES CATHETERIZATION FOR URINE SAMPLE.
[2019-05-25 00:22] VITALS: BP 153/98
== END 2019-05-25 00:23 | disposition home or self-care (01) ==
LOC: ER 22:50
DX: F41.9 Anxiety disorder, unspecified (principal); I10 Essential (primary) hypertension; F31.9 Bipolar disorder, unspecified; F29 Unspecified psychosis not due to a substance or known physiological condition; F15.90 Other stimulant use, unspecified, uncomplicated; Z59.0 Homelessness; Z56.0 Unemployment, unspecified; Z79.899 Other long term (current) drug therapy; Z88.8 Allergy status to other drugs, medicaments and biological substances
CPT/HCPCS: 71045; 93005; 99283

== ENCOUNTER 2019-05-26 14:07 | Emergency (ER) | payer MEDICAID ==
[~2019-05-26] VITALS: Ht 193 cm; Wt 74.3 kg
[2019-05-26 14:51] LABS: CLARITY,URINE CLEAR (Clear); COLOR,URINE STRAW (Yellow); GLUCOSE, URINE NEGATIVE (Neg); KETONES,URINE NEGATIVE (Neg); LEUKOCYTE ESTERASE ,URINE NEGATIVE (Neg); NITRITES, URINE NEGATIVE (Neg); OCCULT BLOOD,URINE NEGATIVE (Neg); PH,URINE 6.5 (4.8-8.0); PROTEIN,URINE NEGATIVE (Neg); UROBILINOGEN,URINE 0.2 E.U/dL (0.2-1.0)
[2019-05-26 14:54] LABS: UA COLLECTION TYPE CLN CATCH MIDSTREAM
[2019-05-26 14:57] LABS: URINE AMPHETAMINE SCREEN POSITIVE (Neg); URINE BARBITUATE SCREEN NEGATIVE (Neg); URINE BENZODIAZEPINES SCREEN NEGATIVE (Neg); URINE CANNABINOID SCREEN NEGATIVE (Neg); URINE COCAINE SCREEN NEGATIVE (Neg); URINE METHADONE SCREEN NEGATIVE (Neg); URINE OPIATE SCREEN NEGATIVE (Neg); URINE PHENCYCLIDINE SCREEN NEGATIVE (Neg)
[2019-05-26 15:40] LABS: BASOPHILS % (AUTO) 0.3 % (0-1); EOSINOPHILS # (AUTO) 0.1 X10'3 (0-0.9); EOSINOPHILS % (AUTO) 1.5 % (0-6); HEMATOCRIT 40.3 % (42.0-52.0); HEMOGLOBIN 13.5 g/dl (14.0-17.9); LYMPHOCYTES # (AUTO) 0.6 X10'3 (1.1-4.8); LYMPHOCYTES % (AUTO) 13.2 % (21-51); MEAN CORPUSCULAR HEMOGLOBIN 29.9 PG (27.0-31.0); MEAN CORPUSCULAR HGB CONC 33.4 g/dL (33.0-36.5); MEAN CORPUSCULAR VOLUME 89.3 FL (78-98); MEAN PLATELET VOLUME 7.9 FL (7.4-10.4); MONOCYTES # (AUTO) 0.3 X10'3 (0-0.9); MONOCYTES % (AUTO) 6.7 % (2-12); NEUTROPHILS # (AUTO) 3.6 X10'3 (1.8-7.7); NEUTROPHILS % (AUTO) 78.3 % (42-75); PLATELET COUNT 236 X10'3 (140-440); RED BLOOD COUNT 4.51 X10'6 (4.70-6.10); RED CELL DISTRIBUTION WIDTH 14.5 % (11.5-14.5); WHITE BLOOD COUNT 4.6 X10'3 (4.5-11.0)
--- NOTE | 2019-05-26 15:45 | NUR ---
pt brought back to overflow, amb with steady gait, calm and cooperative
[2019-05-26 15:57] LABS: ALANINE AMINOTRANSFERASE 71 U/L (12-78); ALBUMIN 3.5 G/DL (3.4-5.0); ALBUMIN/GLOBULIN RATIO 0.9 (1.1-1.5); ALKALINE PHOSPHATASE 79 IU/L (46-116); ANION GAP 10 (8-16); ASPARTATE AMINO TRANSFERASE 76 U/L (10-37); BILIRUBIN,TOTAL 0.2 MG/DL (0.1-1.0); BLOOD UREA NITROGEN 20 MG/DL (7-18); BUN/CREATININE RATIO 16.1 (5.4-32.0); CALCIUM 9.4 MG/DL (8.5-10.1); CHLORIDE 105 MMOL/L (99-107); CREATININE 1.24 MG/DL (0.60-1.10); GLUCOSE 88 MG/DL (70-104); POTASSIUM 3.4 MMOL/L (3.5-5.1); SODIUM 145 MMOL/L (135-145); TOTAL CARBON DIOXIDE 30.4 MMOL/L (24-32); TOTAL PROTEIN 7.4 G/DL (6.4-8.2); eGFR 72 ML/MIN
[2019-05-26 16:05] LABS: ETHANOL < 0.010 GM/DL (0.0-0.010)
--- NOTE | 2019-05-26 16:08 | NUR ---
pt is sleeping on bed, resp even and unlabored,
[2019-05-26] MEDS ORDERED: ARIPIPRAZOLE 10 MG TABLET PO STA (16:20)
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
[2019-05-26] MEDS ORDERED: PALIPERIDONE 3 MG TAB.ER.24 PO STA (16:35)
--- NOTE | 2019-05-26 17:30 | NUR ---
PT PACKET SENT TO [facility]
--- NOTE | 2019-05-26 21:00 | NUR ---
gave pt snack, claudine well, no n/v. pt is calm and cooperative
--- NOTE | 2019-05-26 22:20 | NUR ---
pt continues to sleep
--- NOTE | 2019-05-26 23:46 | NUR ---
pt is sleeping, resp even and unlabored
--- NOTE | 2019-05-27 00:30 | NUR ---
Assumed care from DIO Osborne. Pt. currently in bed, sleeping. No needs at this time.
--- NOTE | 2019-05-27 01:32 | NUR ---
Pt. sleeping on L side.
--- NOTE | 2019-05-27 02:25 | NUR ---
Pt. continues to sleep on L side. Pt. repositions self in bed. No needs at this time.
--- NOTE | 2019-05-27 03:33 | NUR ---
Pt. continues to sleep.
--- NOTE | 2019-05-27 04:27 | NUR ---
Pt. ambulating to bathroom. Supervision provided for safety.
[2019-05-27 05:11] VITALS: BP 136/96
--- NOTE | 2019-05-27 05:43 | NUR ---
Pt. continues to sleep. No needs at this time.
--- NOTE | 2019-05-27 07:00 | NUR ---
Received pt asleep in bed without complaints.
--- NOTE | 2019-05-27 09:00 | NUR ---
Pt awoke for breakfast and then returned to sleep without complaints.
--- NOTE | 2019-05-27 11:06 | NUR ---
Continues to rest quietly.
--- NOTE | 2019-05-27 13:00 | NUR ---
Pt laying in bed without complaints. Pt awaiting powder truck driver from [facility] to transport to [facility].
--- NOTE | 2019-05-27 15:00 | NUR ---
Pt lying in bed awaiting discharge. Pt calm and cooperative.
== END 2019-05-27 15:02 ==
LOC: ER 14:08
DX: R45.851 Suicidal ideations (principal); F20.9 Schizophrenia, unspecified; F22 Delusional disorders; I10 Essential (primary) hypertension; F31.9 Bipolar disorder, unspecified; F12.90 Cannabis use, unspecified, uncomplicated; F15.90 Other stimulant use, unspecified, uncomplicated; Z60.2 Problems related to living alone; Z59.0 Homelessness; Z56.0 Unemployment, unspecified; Z88.1 Allergy status to other antibiotic agents; Z79.899 Other long term (current) drug therapy
CPT/HCPCS: 36415; 80053; 80305; 80320; 81003; 84443; 85025; 99285

== ENCOUNTER 2019-08-29 23:26 | Emergency (ER) | payer MEDICAID ==
[~2019-08-29] VITALS: Ht 193 cm; Wt 72.7 kg
--- NOTE | 2019-08-30 00:45 | NUR ---
Pt awakened to do nursing assessment. Pt reports he "have to execute myself...there are 4 of the trying to execute me". Reports "to stay awake I indulge in amphetamines" last use 2 days ago. States he hears voices that are familiar and are whispers and say "give up ...don't fight it". Schitzophrenia diagnosis "about 20 yrs ago".
[2019-08-30] MEDS ORDERED: PROP10TA10 PO (01:03)
[2019-08-30 01:13] LABS: BASOPHILS % (AUTO) 0.3 % (0-1); EOSINOPHILS # (AUTO) 0.1 X10'3 (0-0.9); EOSINOPHILS % (AUTO) 2.3 % (0-6); HEMATOCRIT 37.3 % (42.0-52.0); HEMOGLOBIN 12.3 g/dl (14.0-17.9); LYMPHOCYTES # (AUTO) 0.8 X10'3 (1.1-4.8); LYMPHOCYTES % (AUTO) 15.6 % (21-51); MEAN CORPUSCULAR HEMOGLOBIN 30.1 PG (27.0-31.0); MEAN CORPUSCULAR VOLUME 91.3 FL (78-98); MEAN PLATELET VOLUME 7.4 FL (7.4-10.4); MONOCYTES # (AUTO) 0.4 X10'3 (0-0.9); MONOCYTES % (AUTO) 7.9 % (2-12); NEUTROPHILS % (AUTO) 73.9 % (42-75); PLATELET COUNT 229 X10'3 (140-440); RED BLOOD COUNT 4.09 X10'6 (4.70-6.10); RED CELL DISTRIBUTION WIDTH 14.3 % (11.5-14.5); WHITE BLOOD COUNT 5.4 X10'3 (4.5-11.0)
[2019-08-30] MEDS ORDERED: IRON18TA PO (01:21)
--- NOTE | 2019-08-30 01:26 | NUR ---
REPORT GIVEN TO DIO BURGOS. PT DRESSED IN GREEN SCRUBS AND BELONGINGS INVENTORIED BY AFSHIN BARRERA. PT WALKED FROM MAIN ER ROOM 15 TO OVERFLOW BED 20. PT REMAINS CALM AND COOPERATIVE. MED REC COMPLETED.
[2019-08-30 01:28] LABS: ALANINE AMINOTRANSFERASE 85 U/L (12-78); ALBUMIN 3.5 G/DL (3.4-5.0); ALKALINE PHOSPHATASE 77 IU/L (46-116); ANION GAP 8 (8-16); ASPARTATE AMINO TRANSFERASE 101 U/L (10-37); BILIRUBIN,TOTAL 0.3 MG/DL (0.1-1.0); BLOOD UREA NITROGEN 26 MG/DL (7-18); BUN/CREATININE RATIO 16.1 (5.4-32.0); CALCIUM 8.7 MG/DL (8.5-10.1); CHLORIDE 107 MMOL/L (99-107); CREATININE 1.61 MG/DL (0.60-1.10); GLUCOSE 106 MG/DL (70-104); POTASSIUM 3.2 MMOL/L (3.5-5.1); SODIUM 142 MMOL/L (135-145); eGFR 53 ML/MIN
[2019-08-30 01:29] LABS: ETHANOL < 0.010 GM/DL (0.0-0.010)
--- NOTE | 2019-08-30 01:30 | NUR ---
PT BROUGHT TO OVERFLOW, GIVEN A SANDWHICH, WATER, JELLO, AND JUICE. PT GAVE URINE.
[2019-08-30 02:29] LABS: URINE AMPHETAMINE SCREEN POSITIVE (Neg); URINE BARBITUATE SCREEN NEGATIVE (Neg); URINE BENZODIAZEPINES SCREEN NEGATIVE (Neg); URINE CANNABINOID SCREEN NEGATIVE (Neg); URINE COCAINE SCREEN NEGATIVE (Neg); URINE METHADONE SCREEN NEGATIVE (Neg); URINE OPIATE SCREEN NEGATIVE (Neg); URINE PHENCYCLIDINE SCREEN NEGATIVE (Neg)
--- NOTE | 2019-08-30 03:30 | NUR ---
pt asleep on R side RR16 even and unlabored
--- NOTE | 2019-08-30 05:19 | NUR ---
Pt asleep on L side RR WNL
[2019-08-30 05:20] LABS: CLARITY,URINE SLIGHTLY CLOUDY (Clear); COLOR,URINE YELLOW (Yellow); GLUCOSE, URINE NEGATIVE (Neg); KETONES,URINE NEGATIVE (Neg); LEUKOCYTE ESTERASE ,URINE NEGATIVE (Neg); NITRITES, URINE NEGATIVE (Neg); OCCULT BLOOD,URINE NEGATIVE (Neg); PROTEIN,URINE TRACE mg/dl (Neg)
[2019-08-30 05:21] LABS: UA COLLECTION TYPE NON-SPECIFIED
[2019-08-30 05:27] LABS: BACTERIA,URINE FEW /HPF (Neg); RBC,URINE NONE SEEN /HPF (0-2); SQUAMOUS EPITHELIAL CELL,UR NONE SEEN /LPF (FEW)
[2019-08-30 05:28] VITALS: BP 123/81
[2019-08-30 05:28] LABS: CAL OXALATE CRYSTALS 3+ /HPF (NEGATIVE); MUCUS STRANDS NONE SEEN /LPF (Neg); WBC CLUMPS,URINE FEW /HPF (NEGATIVE)
--- NOTE | 2019-08-30 06:03 | NUR ---
PACKET FAXED TO [facility]
--- NOTE | 2019-08-30 06:27 | NUR ---
Received patient resting in bed in the supine position resting peacefully, no distress observed.
--- NOTE | 2019-08-30 07:58 | NUR ---
Patient continues to be resting in bed peacefully. Received a phone call from Barbra at [place] office. She is requesting a copy of UTox. Lab results sent.
[2019-08-30] MEDS ORDERED: cephalexin 250mg capsule PO SCH (08:00)
[2019-08-30] MEDS ORDERED: amLODIPine 5mg tablet PO SCH (08:00)
[2019-08-30] MEDS ORDERED: propranolol 10mg tablet PO SCH (08:00)
[2019-08-30] MEDS ORDERED: IRON 45 MG PO SCH (08:00)
[2019-08-30] MEDS ORDERED: multivitamins, therapeutics tablet PO SCH (08:00)
--- NOTE | 2019-08-30 08:25 | NUR ---
Patient ate 100% of his breakfast and was seen ambulating to the bathroom. He is now resting peaceefully on his left side. No distress observed. He is pleasant and cooperative with care and takes his medications as ordered.
--- NOTE | 2019-08-30 10:01 | NUR ---
Patient continues to be resting in bed peacefully on his right side. No distress observed.
--- NOTE | 2019-08-30 10:41 | NUR ---
Patient is resting in bed peacefully on his right side, occassional dry cough appreciated intermittently. No distress observed.
--- NOTE | 2019-08-30 12:35 | NUR ---
Patient continues to be resting in bed peacefully. No distress observed.
--- NOTE | 2019-08-30 12:58 | NUR ---
breaking primary nurse at this time,pt went to use restroom,now sitting at bedside eating his lunch.will cont to monitor .
--- NOTE | 2019-08-30 14:00 | NUR ---
Patient is being evaluated by TAMAR Vela.
--- NOTE | 2019-08-30 14:51 | NUR ---
Spoke to TAMAR Vela. Patient will not be held on a mental health hold as his symptoms are attributed to current and chronic substance use disorder.
[2019-09-19] MEDS ORDERED: MULT-1085 PO (10:28)
[2019-09-19] MEDS ORDERED: AMLO5TAB PO (10:28)
[2019-09-19] MEDS ORDERED: FERR236T3 PO (10:28)
[2019-09-19] MEDS ORDERED: PROP10TA10 PO (10:28)
[2019-09-24] MEDS ORDERED: AMLO5TAB PO (13:28)
[2019-09-24] MEDS ORDERED: PALI156D IM (14:06)
== END 2019-08-30 15:45 | disposition home or self-care (01) ==
LOC: ER 23:26
DX: R45.851 Suicidal ideations (principal); I10 Essential (primary) hypertension; F31.9 Bipolar disorder, unspecified; F20.9 Schizophrenia, unspecified; F12.90 Cannabis use, unspecified, uncomplicated; F15.90 Other stimulant use, unspecified, uncomplicated; Z60.2 Problems related to living alone; Z59.0 Homelessness; Z56.0 Unemployment, unspecified; Z88.8 Allergy status to other drugs, medicaments and biological substances; Z79.899 Other long term (current) drug therapy
CPT/HCPCS: 36415; 80053; 80305; 80320; 81001; 85025; 87088; 99284

== ENCOUNTER 2019-09-16 01:09 | Emergency (ER) | payer MEDICAID ==
[~2019-09-16] VITALS: Ht 193 cm; Wt 77.3 kg
[~2019-09-16 01:09] MED LIST changes: +IRON18TA PO; +PROP10TA10 PO; -PROP40TA7 PO
--- NOTE | 2019-09-16 01:37 | NUR ---
Pt. given two glasses of water and 1 turkey sandwich.
[2019-09-16 02:00] LABS: CLARITY,URINE CLEAR (Clear); COLOR,URINE YELLOW (Yellow); GLUCOSE, URINE NEGATIVE (Neg); KETONES,URINE TRACE mg/dl (Neg); LEUKOCYTE ESTERASE ,URINE NEGATIVE (Neg); NITRITES, URINE NEGATIVE (Neg); OCCULT BLOOD,URINE NEGATIVE (Neg); PROTEIN,URINE 30 mg/dl (Neg); UROBILINOGEN,URINE 0.2 E.U/dL (0.2-1.0)
[2019-09-16 02:07] LABS: BASOPHILS % (AUTO) 0.5 % (0-1); EOSINOPHILS # (AUTO) 0.1 X10'3 (0-0.9); EOSINOPHILS % (AUTO) 1.6 % (0-6); HEMATOCRIT 38.9 % (42.0-52.0); HEMOGLOBIN 12.7 g/dl (14.0-17.9); LYMPHOCYTES % (AUTO) 19.5 % (21-51); MEAN CORPUSCULAR HEMOGLOBIN 29.8 PG (27.0-31.0); MEAN CORPUSCULAR HGB CONC 32.6 g/dL (33.0-36.5); MEAN CORPUSCULAR VOLUME 91.7 FL (78-98); MEAN PLATELET VOLUME 8.4 FL (7.4-10.4); MONOCYTES # (AUTO) 0.4 X10'3 (0-0.9); MONOCYTES % (AUTO) 8.5 % (2-12); NEUTROPHILS # (AUTO) 3.5 X10'3 (1.8-7.7); NEUTROPHILS % (AUTO) 69.9 % (42-75); PLATELET COUNT 202 X10'3 (140-440); RED BLOOD COUNT 4.25 X10'6 (4.70-6.10); RED CELL DISTRIBUTION WIDTH 14.3 % (11.5-14.5)
[2019-09-16 02:10] LABS: UA COLLECTION TYPE CLN CATCH MIDSTREAM
[2019-09-16 02:11] LABS: BACTERIA,URINE FEW /HPF (Neg); HYALINE CASTS 0-3 /LPF (NEGATIVE); MUCUS STRANDS FEW /LPF (Neg); SQUAMOUS EPITHELIAL CELL,UR FEW /LPF (FEW); WBC,URINE NONE SEEN /HPF (0-4)
[2019-09-16 02:14] LABS: URINE AMPHETAMINE SCREEN POSITIVE (Neg); URINE BARBITUATE SCREEN NEGATIVE (Neg); URINE BENZODIAZEPINES SCREEN NEGATIVE (Neg); URINE CANNABINOID SCREEN NEGATIVE (Neg); URINE COCAINE SCREEN NEGATIVE (Neg); URINE METHADONE SCREEN NEGATIVE (Neg); URINE OPIATE SCREEN NEGATIVE (Neg); URINE PHENCYCLIDINE SCREEN NEGATIVE (Neg)
[2019-09-16 02:14] LABS: ALANINE AMINOTRANSFERASE 55 U/L (12-78); ALBUMIN 3.8 G/DL (3.4-5.0); ALKALINE PHOSPHATASE 81 IU/L (46-116); ANION GAP 3 (8-16); ASPARTATE AMINO TRANSFERASE 49 U/L (10-37); BILIRUBIN,TOTAL 0.3 MG/DL (0.1-1.0); BLOOD UREA NITROGEN 16 MG/DL (7-18); CALCIUM 8.9 MG/DL (8.5-10.1); CHLORIDE 111 MMOL/L (99-107); CREATININE 1.33 MG/DL (0.60-1.10); GLUCOSE 102 MG/DL (70-104); POTASSIUM 3.7 MMOL/L (3.5-5.1); SODIUM 145 MMOL/L (135-145); TOTAL CARBON DIOXIDE 31.3 MMOL/L (24-32); TOTAL PROTEIN 7.5 G/DL (6.4-8.2); eGFR 66 ML/MIN
--- NOTE | 2019-09-16 02:15 | NUR ---
Pt. resting in bed quietly. Appears to be comfortable. Additional blankets given at this time.
[2019-09-16 02:18] LABS: ACETAMINOPHEN < 2.0 UG/ML (10-30)
--- NOTE | 2019-09-16 03:15 | NUR ---
Pt. continues to sleep. No s/s of distress. SPO2 and HR monitoring continues per MD.
--- NOTE | 2019-09-16 04:15 | NUR ---
Pt. continues to sleep at this time. No s/s of distress/discomfort.
--- NOTE | 2019-09-16 05:40 | NUR ---
VS taken at this time and stable. Fluids offered, pt. wishes to continue to sleep at this time.
--- NOTE | 2019-09-16 05:59 | NUR ---
Pt. supervised while using the bathroom at this time.
--- NOTE | 2019-09-16 06:13 | NUR ---
Given a pitcher of water at this time.
[2019-09-16] MEDS ORDERED: IRON 45 MG PO SCH (08:00)
[2019-09-16] MEDS: multivitamins, therapeutics tablet PO SCH (09:00)
[2019-09-16] MEDS: amLODIPine 5mg tablet PO SCH (09:00)
[2019-09-16] MEDS: propranolol 10mg tablet PO SCH ×2 (09:00→20:15)
--- NOTE | 2019-09-16 13:03 | NUR ---
pt came over from main er from room 14 to overflow 21.
--- NOTE | 2019-09-16 14:25 | NUR ---
relieving RN for break, pt is sleeping quietly on bed
--- NOTE | 2019-09-16 15:00 | NUR ---
pt is sleeping
--- NOTE | 2019-09-16 16:07 | NUR ---
no concerns at this time. pt is resting in his bed
--- NOTE | 2019-09-16 17:42 | NUR ---
pt is sleeping
--- NOTE | 2019-09-16 19:00 | NUR ---
Pt eating dinner.
--- NOTE | 2019-09-16 20:00 | NUR ---
Meds administered, pt calm and cooperative.
--- NOTE | 2019-09-16 21:00 | NUR ---
Pt resting quietly, respirations normal, no s/s of distress.
--- NOTE | 2019-09-16 22:32 | NUR ---
Pt resting quietly, respirations normal, no s/s of distress.
--- NOTE | 2019-09-17 | NUR ---
Pt resting quietly, respirations normal, no s/s of distress.
--- NOTE | 2019-09-17 01:00 | NUR ---
Pt resting quietly, respirations normal, no s/s of distress.
--- NOTE | 2019-09-17 02:12 | NUR ---
Pt resting quietly, respirations normal, no s/s of distress.
--- NOTE | 2019-09-17 03:00 | NUR ---
Pt resting quietly, respirations normal, no s/s of distress.
--- NOTE | 2019-09-17 04:00 | NUR ---
Pt resting quietly, respirations normal, no s/s of distress.
--- NOTE | 2019-09-17 05:36 | NUR ---
Pt resting quietly, respirations normal, no s/s of distress.
--- NOTE | 2019-09-17 07:56 | NUR ---
Patient sleeping in bed on right side. Respirations are even and unlabored.
[2019-09-17] MEDS: multivitamins, therapeutics tablet PO SCH (08:35)
[2019-09-17] MEDS: propranolol 10mg tablet PO SCH ×2 (08:35→20:14)
[2019-09-17] MEDS: amLODIPine 5mg tablet PO SCH (08:35)
[2019-09-17] MEDS ORDERED: acetaminophen 325mg tablet PO PRN (09:00)
--- NOTE | 2019-09-17 09:21 | NUR ---
Patient awakened for brealfast and medications. prn Tylenol given for headache with good effect. Pt. states he has had a headache for two days. Patient now sleeping in bed on left side.
--- NOTE | 2019-09-17 09:40 | NUR ---
Breaking primary RN, pt is resting on his left side, eyes closed, regular breathing present
--- NOTE | 2019-09-17 11:14 | NUR ---
Pt. laying on right side sleeping. Respirations are even and unlabored.
--- NOTE | 2019-09-17 12:14 | NUR ---
Breaking primary RN, pt is asleep, no s/s of agitation observed, regular breathing observed
--- NOTE | 2019-09-17 15:34 | NUR ---
Breaking primary RN, pt is sleeping, no s/s agitation
--- NOTE | 2019-09-17 17:01 | NUR ---
Pt. laying on right side sleeping. Respirations are even and unlabored.
--- NOTE | 2019-09-17 18:22 | NUR ---
The patient is resting on his bed and awakened easily for an evening assessment. The patient denies significant ETOH abuse and doesn't understand how his BA was so high. "I think I drand a half glass of beer" He stated that he does use meth to stay awake and alert on the streets. He stated that he has been homeless for the past two years. He is a patient of [facility] and recieves IM Invega every month per his report. He stated that he does hear voices at night and that they are whispers.He was reminded that he is on a 5150 hold which he was aware of and he knew he was in the hospital. He was also made aware that he was going to be transported to a psychiatric facility when a bed became available and he replied, "It will give me time to plan my "
--- NOTE | 2019-09-17 20:36 | NUR ---
The patient has been accepted at [facility] for admit in the am
--- NOTE | 2019-09-17 22:45 | NUR ---
The patient appears to be sleeping.
--- NOTE | 2019-09-18 03:38 | NUR ---
The patient appears to be sleeping. He has been up to use the bathroom once but then went right back to bed.
--- NOTE | 2019-09-18 05:02 | NUR ---
The patient is trying to sleep. He is resting on his bed.
--- NOTE | 2019-09-18 06:42 | NUR ---
Patient laying on left side sleeping. Respirations are even and nonlabored.
--- NOTE | 2019-09-18 08:23 | NUR ---
Patient sitting up at bedside eating breakfast. No complaints at this time.
[2019-09-18] MEDS: propranolol 10mg tablet PO SCH (08:48)
[2019-09-18] MEDS: multivitamins, therapeutics tablet PO SCH (08:48)
[2019-09-18] MEDS: amLODIPine 5mg tablet PO SCH (08:48)
[2019-09-18 09:15] VITALS: BP 146/86
[2019-09-19] MEDS ORDERED: AMLO5TAB PO (10:28)
[2019-09-19] MEDS ORDERED: MULT-1085 PO (10:28)
[2019-09-19] MEDS ORDERED: FERR236T3 PO (10:28)
[2019-09-19] MEDS ORDERED: PROP10TA10 PO (10:28)
== END 2019-09-18 09:56 | disposition home or self-care (01) ==
LOC: ER 01:10
DX: R45.851 Suicidal ideations (principal); F10.129 Alcohol abuse with intoxication, unspecified; F31.9 Bipolar disorder, unspecified; I10 Essential (primary) hypertension; F20.9 Schizophrenia, unspecified; F12.90 Cannabis use, unspecified, uncomplicated; F15.90 Other stimulant use, unspecified, uncomplicated; Z60.2 Problems related to living alone; Z59.0 Homelessness; Z56.0 Unemployment, unspecified; Z88.8 Allergy status to other drugs, medicaments and biological substances; Z79.899 Other long term (current) drug therapy; Y90.9 Presence of alcohol in blood, level not specified
CPT/HCPCS: 36415; 80053; 80305; 80320; 80329; 81001; 85025; 99285

== ENCOUNTER 2019-11-19 15:18 | Emergency (ER) | payer MEDICAID ==
[~2019-11-19] VITALS: Ht 193 cm; Wt 80.0 kg
[~2019-11-19 15:18] MED LIST changes: -AMLO-314 PO; +AMLO5TAB PO; +FERR236T3 PO; -IRON18TA PO; +MULT-1085 PO; -MULT-1172 PO; +PALI156D IM
[2019-11-19 15:29] VITALS: BP 139/101
[2019-11-19] MEDS ORDERED: CEPH250T PO (15:43)
[2019-11-19] MEDS ORDERED: IBUP-1984 PO (15:43)
== END 2019-11-19 15:56 | disposition home or self-care (01) ==
LOC: ER 15:18
DX: M77.42 Metatarsalgia, left foot (principal); M77.41 Metatarsalgia, right foot; L03.031 Cellulitis of right toe; M21.611 Bunion of right foot; I10 Essential (primary) hypertension; F31.9 Bipolar disorder, unspecified; F20.9 Schizophrenia, unspecified; F12.90 Cannabis use, unspecified, uncomplicated; F15.90 Other stimulant use, unspecified, uncomplicated; Z60.2 Problems related to living alone; Z59.0 Homelessness; Z56.0 Unemployment, unspecified; Z88.8 Allergy status to other drugs, medicaments and biological substances; Z79.899 Other long term (current) drug therapy
CPT/HCPCS: 99283

== ENCOUNTER 2019-12-06 14:19 | Emergency (ER) | payer MEDICAID ==
[~2019-12-06] VITALS: Ht 193 cm; Wt 72.7 kg
[2019-12-06 14:24] VITALS: BP 135/103
[2019-12-06] MEDS ORDERED: ketorolac tromethamine 15mg/ml inj. IM ONE (15:55)
[2019-12-06] MEDS ORDERED: IBUP-1984 PO (15:55)
[2019-12-08] MEDS ORDERED: PALI156D IM (02:17)
[2019-12-08] MEDS ORDERED: AMLO5TAB PO (02:17)
[2019-12-08] MEDS ORDERED: PROP10TA10 PO (02:17)
== END 2019-12-06 16:16 | disposition home or self-care (01) ==
LOC: ER 14:19
DX: M77.41 Metatarsalgia, right foot (principal); L84 Corns and callosities; M79.671 Pain in right foot; I10 Essential (primary) hypertension; F31.9 Bipolar disorder, unspecified; F20.9 Schizophrenia, unspecified; F12.90 Cannabis use, unspecified, uncomplicated; F15.90 Other stimulant use, unspecified, uncomplicated; Z60.2 Problems related to living alone; Z56.0 Unemployment, unspecified; Z59.0 Homelessness; Z88.8 Allergy status to other drugs, medicaments and biological substances; Z79.899 Other long term (current) drug therapy
CPT/HCPCS: 96372; 99283; J1885

== ENCOUNTER → 2019-12-07 | Emergency (ER) | payer MEDICAID ==
[~2019-12-07] VITALS: Ht 193 cm; Wt 82.0 kg
[~2019-12-07] MED LIST changes: +IBUP-1984 PO; +paliperidone palmitate 156 mg/ml inj.**IM only IM SCH; +potassium Cl 20 mEq SR tablet PO STA
--- NOTE | 2019-12-08 00:03 | NUR ---
Pt. at bedside examing the pt. Pt. now reporting S/I. He is stating that he is having delusions and differentiating between reality/hallucinations. He doesn't specify whether he is having visual/auditory stimuli. Pt. states that he'd rather be than have these delusions. Pt. does not have any specific suicide plan.
[2019-12-08 00:55] LABS: BASOPHILS % (AUTO) 0.4 % (0-1); EOSINOPHILS # (AUTO) 0.1 X10'3 (0-0.9); EOSINOPHILS % (AUTO) 2.4 % (0-6); HEMATOCRIT 36.6 % (42.0-52.0); HEMOGLOBIN 12.2 g/dl (14.0-17.9); LYMPHOCYTES % (AUTO) 24.6 % (21-51); MEAN CORPUSCULAR HEMOGLOBIN 30.9 PG (27.0-31.0); MEAN CORPUSCULAR HGB CONC 33.5 g/dL (33.0-36.5); MEAN CORPUSCULAR VOLUME 92.3 FL (78-98); MONOCYTES # (AUTO) 0.4 X10'3 (0-0.9); NEUTROPHILS # (AUTO) 2.7 X10'3 (1.8-7.7); NEUTROPHILS % (AUTO) 62.6 % (42-75); PLATELET COUNT 193 X10'3 (140-440); RED BLOOD COUNT 3.97 X10'6 (4.70-6.10); RED CELL DISTRIBUTION WIDTH 13.9 % (11.5-14.5); WHITE BLOOD COUNT 4.2 X10'3 (4.5-11.0)
[2019-12-08 01:03] LABS: URINE AMPHETAMINE SCREEN POSITIVE (Neg); URINE BARBITUATE SCREEN NEGATIVE (Neg); URINE BENZODIAZEPINES SCREEN NEGATIVE (Neg); URINE CANNABINOID SCREEN NEGATIVE (Neg); URINE COCAINE SCREEN NEGATIVE (Neg); URINE METHADONE SCREEN NEGATIVE (Neg); URINE OPIATE SCREEN NEGATIVE (Neg); URINE PHENCYCLIDINE SCREEN NEGATIVE (Neg)
[2019-12-08 01:05] LABS: ALANINE AMINOTRANSFERASE 47 U/L (12-78); ALBUMIN 3.7 G/DL (3.4-5.0); ALBUMIN/GLOBULIN RATIO 1.1 (1.1-1.5); ALKALINE PHOSPHATASE 65 IU/L (46-116); ANION GAP 5 (8-16); ASPARTATE AMINO TRANSFERASE 38 U/L (10-37); BILIRUBIN,TOTAL 0.5 MG/DL (0.1-1.0); BLOOD UREA NITROGEN 21 MG/DL (7-18); BUN/CREATININE RATIO 19.1 (5.4-32.0); CALCIUM 8.7 MG/DL (8.5-10.1); CHLORIDE 107 MMOL/L (99-107); ETHANOL < 0.010 GM/DL (0.0-0.010); GLUCOSE 91 MG/DL (70-104); POTASSIUM 3.1 MMOL/L (3.5-5.1); SODIUM 140 MMOL/L (135-145); TOTAL CARBON DIOXIDE 27.9 MMOL/L (24-32); eGFR 82 ML/MIN
--- NOTE | 2019-12-08 02:11 | NUR ---
SET MED CLEARANCE TO .
--- NOTE | 2019-12-08 02:26 | NUR ---
Report given to DIO Mitchell. Pt. escorted to OF 20 from ED 7 by DIO.
--- NOTE | 2019-12-08 02:35 | NUR ---
RECIEVED PT IN ER OVERFLOW. PT GIVEN WATER, SOCKS, AND A WARM BLANKET
--- NOTE | 2019-12-08 05:57 | NUR ---
PACKET FAXED TO [facility]
[2019-12-08] MEDS: propranolol 10mg tablet PO SCH ×2 (07:43→20:10)
[2019-12-08] MEDS: amLODIPine 5mg tablet PO SCH (07:44)
--- NOTE | 2019-12-08 20:37 | NUR ---
PATIENT WAS GIVEN ASANDWICH,JELLO,APPLESAUCE AND JUICE
--- NOTE | 2019-12-09 06:30 | NUR ---
pt up use restroom at this time.will cont to monitor.
--- NOTE | 2019-12-09 08:10 | NUR ---
up to eat her breakfast ,no distress noted.
[2019-12-09] MEDS: propranolol 10mg tablet PO SCH ×2 (08:19→20:19)
[2019-12-09] MEDS: amLODIPine 5mg tablet PO SCH (08:19)
--- NOTE | 2019-12-09 08:37 | NUR ---
pt medicated with scheduled meds no distress noted,will cont to monitor.
--- NOTE | 2019-12-09 10:31 | NUR ---
pt sleeping at this time.no distress noted,RR even and nonlabored.
--- NOTE | 2019-12-09 13:23 | NUR ---
pt resting in bed quietly ,will cont to monitor .rr even and nonlabored.
--- NOTE | 2019-12-09 15:30 | NUR ---
pt resting in rgt lateral position ,will cont to monitor.rr even and unlabored.
[2019-12-09 17:36] VITALS: BP 129/81
--- NOTE | 2019-12-09 18:30 | NUR ---
ASSUMED CARE. PT APPEARS ASLEEP ON LEFT SIDE. RR EVEN AND UNLABORED, WILL CONTINUE TO MONITOR
--- NOTE | 2019-12-09 19:30 | NUR ---
PT APPEARS ASLEEP, RR EVEN AND UNLABORED, WILL CONTINUE TO MONITOR
--- NOTE | 2019-12-09 21:05 | NUR ---
PT ASLEEP ON RIGHT SIDE. RR EVEN AND UNLABORED, WILL CONTINUE TO MONITOR
== END ==
LOC: ER 23:44
DX: R45.851 Suicidal ideations (principal); F22 Delusional disorders; E87.6 Hypokalemia; M79.672 Pain in left foot; I10 Essential (primary) hypertension; F31.9 Bipolar disorder, unspecified; F20.9 Schizophrenia, unspecified; F12.90 Cannabis use, unspecified, uncomplicated; F15.90 Other stimulant use, unspecified, uncomplicated; Z98.890 Other specified postprocedural states; Z60.2 Problems related to living alone; Z59.0 Homelessness; Z56.0 Unemployment, unspecified; Z88.8 Allergy status to other drugs, medicaments and biological substances; Z79.899 Other long term (current) drug therapy
CPT/HCPCS: 36415; 80053; 80305; 80320; 85025; 93005; 99285

== ENCOUNTER 2019-12-16 09:19 | Inpatient (IN) | payer MEDICAID ==
[~2019-12-16] VITALS: Ht 193 cm; Wt 70.6 kg
[~2019-12-16 09:19] MED LIST changes: -FERR236T3 PO; -IBUP-1984 PO; -MULT-1085 PO; -paliperidone palmitate 156 mg/ml inj.**IM only IM SCH; -potassium Cl 20 mEq SR tablet PO STA
[2019-12-16] MEDS ORDERED: mag hydrox/Alum hydrox/simeth 30ml oral suspension PO PRN (10:50)
[2019-12-16] MEDS ORDERED: LORazepam 1 MG tablet PO PRN (10:50)
[2019-12-16] MEDS ORDERED: acetaminophen 325mg tablet PO PRN ×2 (10:50)
[2019-12-16] MEDS ORDERED: NICOTINE POLACRILEX 2 MG LOZENGE BC PRN (10:50)
[2019-12-16] MEDS ORDERED: loperamide 2mg capsule PO PRN (10:50)
[2019-12-16] MEDS ORDERED: traZODone 50mg tablet PO PRN (10:50)
[2019-12-16] MEDS ORDERED: magnesium hydroxide 30ml (MOM) UD suspension PO PRN (10:50)
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
[2019-12-16] MEDS ORDERED: paliperidone palmitate 156 mg/ml inj.**IM only IM SCH (14:35)
--- NOTE | 2019-12-16 16:40 | NUR ---
INJECTION Administered Invega Sustenna 156mg IM left deltoid
--- NOTE | 2019-12-16 16:48 | NUR ---
Nutrition consult re: patient reports loss of more than 50 lbs in 2 months. Per documented weight history patient weighed 65 kg on standing scale 09/18/2019, 75.65 kg 02/08/2020 on chair scale, 83 kg 10/07/2018 on standing scale. Current documented wt on standing scale is 68.2 kg. no weight loss. Eating 100%, good appetite. No malnutrition. Addendum: 12/16/19 at [address] Amended: Links added.
[2019-12-16] MEDS: propranolol 10mg tablet PO SCH (20:25)
[2019-12-16 20:35] VITALS: BP 168/106
--- NOTE | 2019-12-16 23:05 | NUR ---
Nursing Progress Note: Legal hold: Client on voluntary/involuntary status for GD Report received from nurse with use of SBAR Why are they here:Admission note: Pt admitted to [facility] today at 0950 on 5150 for gravely disabled. Pt states "Im going to be executed", and "my enemy is having decided to end my life". Pt has decided to "Execute myself first." Pt has been off his medications for 2 weeks. History of Bipolar, schizophrenia, meth abuse. 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 Pt was found in a motel with rotting food unable to care for self. Assessment What has happened this shift: Patient in re room watching tv with peers.Pt hxof Bipolar,Schizophrenia and Meth abuse. During interview pt denied any symptoms of SI or AH. Pt B/P was 168/106 Pt given first dose of Inderal and rechecked in 1 hr 120/83 will continue to monitor. S/I, H/I:denies A/VH: denies Sleep:see sleep hrs ADL's: independent Group attendance:no Were meds taken:yes Any med S/E none Mental Status Exam Appearance: Dressed in green scrubs Eye contact:good Behavior:cooperative Speech:clear Mood:glum Affect:blunted Thought process:linear Thought Content:discharge Cognition:A&Ox3 Insight:poor Judgment:poor Interventions PRN's used:none Therapeutic interventions: Maintained a safe and supportive environment, ensured contract for safety, provided clear and simple instructions, attempted to orient to reality, monitored behaviors and provided redirection and medication as needed, provided active listening and positive encouragement, encouraged participation on the unit, and maintained Q 15 min safety checks. Restraints/seclusion/emergency medication: N/A Justification of Continued Inpatient Treatment: Continues to monitor medication adjustments and maintain a safe environment.
[2019-12-17 08:00] VITALS: BP 131/91
[2019-12-17] MEDS: propranolol 10mg tablet PO SCH ×2 (09:06→20:13)
[2019-12-17] MEDS: amLODIPine 5mg tablet PO SCH (09:06)
[2019-12-17 10:47] LABS: CHOLESTEROL 178 MG/DL (0-200); HDL CHOLESTEROL 60 MG/DL (35-60); LDL CHOLESTEROL 108 MG/DL (50-100); TRIGLYCERIDES 74 MG/DL (20-135)
[2019-12-17 10:55] LABS: HEMOGLOBIN A1C 5.6 % (4.5-6.2)
[2019-12-17] MEDS: lactose-reduced food (Ensure Enlive) - 237ml bottle PO SCH ×2 (13:33→18:00)
--- NOTE | 2019-12-17 17:17 | NUR ---
Nursing Progress Note: Legal hold: Client on voluntary/involuntary status for GD Report received from nurse with use of SBAR Why are they here: Pt admitted to [facility] today at 0950 on 5150 for gravely disabled. Pt states "Im going to be executed", and "my enemy is having decided to end my life". Pt has decided to "Execute myself first." Pt has been off his medications for 2 weeks. History of Bipolar, schizophrenia, meth abuse. 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 Pt was found in a motel with rotting food unable to care for self. Assessment What has happened this shift: Patient was asleep at change of shift and up for breakfast. Patient is quiet and polite. Patient is pleasant and answers questions appropriately. Patient isolates and sleeps most of the day. Patient denies suicidal/homicidal ideation. Patient denies audio/visual hallucinations. Patient does not go to group and takes medications as prescribed. S/I, H/I:denies A/VH: denies Sleep:see sleep hrs ADL's: independent Group attendance:no Were meds taken:yes Any med S/E none Mental Status Exam Appearance: Dressed in green scrubs Eye contact:good Behavior:cooperative Speech:clear, poverty of speech. Mood: depressed Affect:depressed Thought process:linear Thought Content:unknown Cognition:A&Ox3 Insight:poor Judgment:poor Interventions PRN's used:none Therapeutic interventions: Maintained a safe and supportive environment, ensured contract for safety, provided clear and simple instructions, attempted to orient to reality, monitored behaviors and provided redirection and medication as needed, provided active listening and positive encouragement, encouraged participation on the unit, and maintained Q 15 min safety checks. Restraints/seclusion/emergency medication: N/A Justification of Continued Inpatient Treatment: Continues to monitor medication adjustments and maintain a safe environment.
[2019-12-17 20:00] VITALS: BP 137/94
[2019-12-17] MEDS: PALIPERIDONE 3 MG TAB.ER.24 PO SCH (20:13)
--- NOTE | 2019-12-18 00:09 | NUR ---
Nursing Progress Note: Legal hold: Client on voluntary/involuntary status for GD Report received from nurse Ivan WHARTON with use of SBAR Why are they here: Pt admitted to [facility] today at 0950 on 5150 for gravely disabled. Pt states "Im going to be executed", and "my enemy is having decided to end my life". Pt has decided to "Execute myself first." Pt has been off his medications for 2 weeks. History of Bipolar, schizophrenia, meth abuse. 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 Pt was found in a motel with rotting food unable to care for self. Assessment What has happened this shift: Patient was up and in rec room watching tv with peers. He reports feeling good denies SI/HI and AH/VH. He started invega this shift was med compliant and pleasant .Ate snack in group room then went to bed. S/I, H/I:denies A/VH: denies Sleep:see sleep hrs ADL's: independent Group attendance:no Were meds taken:yes Any med S/E none Mental Status Exam Appearance: Dressed in green scrubs Eye contact:good Behavior:cooperative Speech:clear, poverty of speech. Mood: depressed Affect:depressed Thought process:linear Thought Content:unknown Cognition:A&Ox3 Insight:poor Judgment:poor Interventions PRN's used:none Therapeutic interventions: Maintained a safe and supportive environment, ensured contract for safety, provided clear and simple instructions, attempted to orient to reality, monitored behaviors and provided redirection and medication as needed, provided active listening and positive encouragement, encouraged participation on the unit, and maintained Q 15 min safety checks. Restraints/seclusion/emergency medication: N/A Justification of Continued Inpatient Treatment: Continues to monitor medication adjustments and maintain a safe environment.
[2019-12-18 08:00] VITALS: BP 135/84
[2019-12-18] MEDS: propranolol 10mg tablet PO SCH ×2 (08:58→20:02)
[2019-12-18] MEDS: amLODIPine 5mg tablet PO SCH (08:58)
[2019-12-18] MEDS: lactose-reduced food (Ensure Enlive) - 237ml bottle PO SCH ×3 (08:59→18:17)
--- NOTE | 2019-12-18 10:45 | NUR ---
CM Presenting Issues: This is pt's third admission to [facility] in a little over a year. Pt's has had 20+PHF admissions beginning in his early 20's to current time. Over the past 2 years pt's had over 5 PHF admission. While inpatient pt is able to achieve stability via medication treatment & support from [facility] staff. However, pt rarely follow thru with aftercare plan once d/c and will go thru $1,000+ in 2 weeks time (between motel rooms and meth), not attend to his basic needs (food, long term, hygeine and healthcare). [facility] have tried numerous times to support pt via [facility] services including CR placement, but pt has not been able to maintain stability with standard & intensive outpatient support. Interventions: SS consulted w/Sue, Physician Support Coordinator @ [facility] re possible LPS conservatorship for pt. Per consultation SS will submit referrral for an LPS evaluation. SS also had MDT consult, per consultation, care team in support of LPS conservatorship referral for pt at this time. SS also informed attending physician of plan for LPS conservatorship referral and expiration of 5150 tomorrow morning. Plan: SS will complete & fax referral for conservatorship to [facility] and discuss this w/pt. Mariya Romero LCSW Addendum: 12/18/19 at 1105 by Mariya Romero SS Amended: Links added.
--- NOTE | 2019-12-18 11:26 | NUR ---
Assessment Presenting Issues: Pt admitted to [facility] following 5150 for GD condition associated w/sxs of ME. Pt brought to [facility] ED and reported to staff that he was being pursue by people who wants to execute him. Pt threatened to kill himself by walking into traffic so that his "enemies" won't be able to get to him. Interventions: SS met w/pt provided Informed Consent info, engaged pt in completing psychosocial assessment, Initial TP and obtained pt's signature on his ITP (#9) and ROBIN. SS also engaged pt in pre dcp activities to get an understanding of pt's thoughts re dcp. Pt states, "I get my money on the 1st and will leave the area so my enemies won't find me". This is similar to prior admission, pt had also done this in [facility]- left there to "escape a gang of thugs who wants to execute me because I witnessed a crime". Plan: Referral to [facility] for LPS conservatorship eval. Mariya Romero LCSW Addendum: 12/18/19 at 1133 by Mariya Romero Amended: Links added.
--- NOTE | 2019-12-18 15:16 | NUR ---
Nursing Progress Note: Legal hold: Client on voluntary/involuntary status for GD Report received from nurse with use of SBAR Why are they here: Pt admitted to [facility] today at 0950 on 5150 for gravely disabled. Pt states "Im going to be executed", and "my enemy is having decided to end my life". Pt has decided to "Execute myself first." Pt has been off his medications for 2 weeks. History of Bipolar, schizophrenia, meth abuse. 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 Pt was found in a motel with rotting food unable to care for self. Assessment What has happened this shift: Patient was asleep at change of shift and up for breakfast. Patient is quiet and polite. Patient sleeps a lot. Patient is depressed but denies suicidal/homicidal ideation. Patient denies audio/visual hallucinations. Patient is getting a protein drink at meals because patient is so thin. Patient does not go to groups. Dr. Salazar today talked about starting [employer]. S/I, H/I:denies A/VH: denies Sleep:sleeps most the day except for snacks and meals. ADL's: independent Group attendance:no Were meds taken:yes Any med S/E none Mental Status Exam Appearance: Dressed in green scrubs Eye contact:good Behavior:cooperative Speech:clear, poverty of speech. Mood: depressed Affect:depressed Thought process:linear Thought Content:unknown Cognition:A&Ox3 Insight:poor Judgment:poor Interventions PRN's used:none Therapeutic interventions: Maintained a safe and supportive environment, ensured contract for safety, provided clear and simple instructions, attempted to orient to reality, monitored behaviors and provided redirection and medication as needed, provided active listening and positive encouragement, encouraged participation on the unit, and maintained Q 15 min safety checks. Restraints/seclusion/emergency medication: N/A Justification of Continued Inpatient Treatment: Continues to monitor medication adjustments and maintain a safe environment.
[2019-12-18] MEDS: PALIPERIDONE 3 MG TAB.ER.24 PO SCH (20:02)
[2019-12-18 20:09] VITALS: BP 156/98
--- NOTE | 2019-12-18 22:26 | NUR ---
Nursing Progress Note: Legal hold: Client on voluntary/involuntary status for GD Report received from nursemelanie with use of SBAR Why are they here: Pt admitted to [facility] today at 0950 on 5150 for gravely disabled. Pt states "Im going to be executed", and "my enemy is having decided to end my life". Pt has decided to "Execute myself first." Pt has been off his medications for 2 weeks. History of Bipolar, schizophrenia, meth abuse. 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 Pt was found in a motel with rotting food unable to care for self. Assessment What has happened this shift: Patient was in the group room sitting by himself at change of shift. Pt prefers to be called amando. Pt denies being suicidal but stated that if I was to go out on the streets, i would be. When asked if he hears voices, pt responded not for the last week. Pt was on the unit during snack and was interacting appropriately, did not have any behavior issues. Pt denied having any complaints at this time. S/I, H/I:denies A/VH: denies Sleep: see sleep assessment ADL's: independent Group attendance:no Were meds taken:yes Any med S/E none Mental Status Exam Appearance: Dressed in green scrubs Eye contact:good Behavior:cooperative Speech:clear, poverty of speech. Mood: depressed Affect:depressed Thought process:linear Thought Content:unknown Cognition:A&Ox3 Insight:poor Judgment:poor Interventions PRN's used:none Therapeutic interventions: Maintained a safe and supportive environment, ensured contract for safety, provided clear and simple instructions, attempted to orient to reality, monitored behaviors and provided redirection and medication as needed, provided active listening and positive encouragement, encouraged participation on the unit, and maintained Q 15 min safety checks. Restraints/seclusion/emergency medication: N/A Justification of Continued Inpatient Treatment: Continues to monitor medication adjustments and maintain a safe environment.
[2019-12-19 08:00] VITALS: BP 136/87
[2019-12-19] MEDS: amLODIPine 5mg tablet PO SCH (08:15)
[2019-12-19] MEDS: propranolol 10mg tablet PO SCH ×2 (08:16→20:13)
[2019-12-19] MEDS: lactose-reduced food (Ensure Enlive) - 237ml bottle PO SCH ×3 (08:17→18:00)
--- NOTE | 2019-12-19 11:40 | NUR ---
Initial: Pt admit with psychosis. Currently on a regular diet documented with 75-100% PO intake throughout LOS. Pt receiving Ensure Enlive and documented with 100% PO intake of ONS. Pt meeting nutrient needs. Pt would benefit from ONS change to Ensure High Protein or discontinuation of ONS with the addition of double protein TID given good PO intake of meals. No documented LBM though pt denies GI symptoms. PRN bowel care available. No documented edema or wounds. No nutrition diagnosis at this time. Will continue to follow. Recommendations: 1) Continue regular diet 2) Ensure Enlive TID; consider ONS change to Ensure High Protein and/or discontinue ONS with the addition of double protein TID given good PO intake of meals 3) Bowel care PRN 4) Scaled weights per rx Addendum: 12/19/19 at [address] Amended: Links added.
--- NOTE | 2019-12-19 16:45 | NUR ---
Nursing Progress Note: Legal hold: Client on 5249 involuntary status for GD Report received from nurse with use of SBAR Why are they here: Pt admitted to [facility] today at 0950 on 5150 for gravely disabled. Pt states "Im going to be executed", and "my enemy is having decided to end my life". Pt has decided to "Execute myself first." Pt has been off his medications for 2 weeks. History of Bipolar, schizophrenia, meth abuse. 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 Pt was found in a motel with rotting food unable to care for self. Assessment What has happened this shift: Received pt asleep in bed. Pt awoke for breakfast. Pt minimally interactive with peers when interacted with. Pt is pleasant with blunted affect. Pt denies suicidal and homicidal thoughts. Pt denies a/v hallucinations; though, he appears internally preoccupied at times. Pt seemed to lack insight related to his discussion with Dr. Salazar yesterday about being conserved and talked about getting out of here on 01/01 when his check will be available. Pt was placed on 5249 today which he was ok with. S/I, H/I: denies A/VH: denies Sleep: sleeps most the day except for snacks and meals. ADL's: independent Group attendance: no Were meds taken: yes Any med S/E none Mental Status Exam Appearance: Dressed in green scrubs Eye contact: good Behavior: cooperative Speech: clear, poverty of speech. Mood: apathetic Affect: blunted Thought process: linear Thought Content: unknown Cognition: A&Ox3 Insight: poor Judgement: poor Interventions PRN's used: none Therapeutic interventions: Maintained a safe and supportive environment, ensured contract for safety, provided clear and simple instructions, attempted to orient to reality, monitored behaviors and provided redirection and medication as needed, provided active listening and positive encouragement, encouraged participation on the unit, and maintained Q 15 min safety checks. Restraints/seclusion/emergency medication: N/A Justification of Continued Inpatient Treatment: Continues to monitor medication adjustments and maintain a safe environment. Encourage milieu involvement.
[2019-12-19 19:00] VITALS: BP 137/100
[2019-12-19] MEDS: PALIPERIDONE 3 MG TAB.ER.24 PO SCH (20:13)
--- NOTE | 2019-12-20 00:12 | NUR ---
Nursing Progress Note: Legal hold: Client on voluntary/involuntary status for GD Report received from nursemelanie with use of SBAR Why are they here: Pt admitted to [facility] today at 0950 on 5150 for gravely disabled. Pt states "Im going to be executed", and "my enemy is having decided to end my life". Pt has decided to "Execute myself first." Pt has been off his medications for 2 weeks. History of Bipolar, schizophrenia, meth abuse. 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 Pt was found in a motel with rotting food unable to care for self. Assessment What has happened this shift: Pt was in rec room watching tv at change of shift. Pt is friendly with staff and peers and was cooperative for 1:1. Pt denied being suicidal or hearing voices and was not seen responding to internal stimuli. Pt attended snack with peers and did not have any behavior issues. Pt accepted hs meds without issue. Pt had difficulty sleeping because noise from pt's cpap machine. pt requested a room change. S/I, H/I:denies A/VH: denies Sleep: see sleep assessment ADL's: independent Group attendance:no Were meds taken:yes Any med S/E none Mental Status Exam Appearance: Dressed in green scrubs Eye contact:good Behavior:cooperative Speech:clear, poverty of speech. Mood: depressed Affect:depressed Thought process:linear Thought Content:unknown Cognition:A&Ox3 Insight:poor Judgment:poor Interventions PRN's used:none Therapeutic interventions: Maintained a safe and supportive environment, ensured contract for safety, provided clear and simple instructions, attempted to orient to reality, monitored behaviors and provided redirection and medication as needed, provided active listening and positive encouragement, encouraged participation on the unit, and maintained Q 15 min safety checks. Restraints/seclusion/emergency medication: N/A Justification of Continued Inpatient Treatment: Continues to monitor medication adjustments and maintain a safe environment.
[2019-12-20 08:00] VITALS: BP 139/91
[2019-12-20] MEDS: propranolol 10mg tablet PO SCH ×2 (08:10→20:08)
[2019-12-20] MEDS: amLODIPine 5mg tablet PO SCH (08:11)
[2019-12-20] MEDS: lactose-reduced food (Ensure Enlive) - 237ml bottle PO SCH ×3 (08:12→18:10)
--- NOTE | 2019-12-20 18:14 | NUR ---
Nursing Progress Note: Legal hold: Client on 5250 involuntary status for GD Report received from nurse with use of SBAR Why are they here: Pt admitted to [facility] today at 0950 on 5150 for gravely disabled. Pt states "Im going to be executed", and "my enemy is having decided to end my life". Pt has decided to "Execute myself first." Pt has been off his medications for 2 weeks. History of Bipolar, schizophrenia, meth abuse. 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 Pt was found in a motel with rotting food unable to care for self. Assessment What has happened this shift: Received pt asleep in bed. Pt awoke for breakfast and took all medications. Pt. ate all meals in the community room. Pt. went back to his room and slept after breakfast. Pt. awoken for 1:1 assessment. Pt. reports SI without a plan. Pt. denies all other symptoms. Pt. offers minimal information during assessment. Pt. isolated to his room most of the day. Pt. more lively after dinner, RN asked pt. about his dinner, pt. stated, "It was excellent!" S/I, H/I: + SI without a plan. A/VH: denies Sleep: Napped intermittently throughout the day. ADL's: independent Group attendance: no Were meds taken: yes Any med S/E: Denies Mental Status Exam Appearance: Dressed in green scrubs Eye contact: good Behavior: cooperative, isolates to room, socializes minimally Speech: clear, poverty of speech. Mood: Euthymic Affect: blunted Thought process: linear, thought blocking. Thought Content: unable to assess Cognition: A&Ox3 Insight: poor Judgement: poor Interventions PRN's used: none Therapeutic interventions: Maintained a safe and supportive environment, ensured contract for safety, provided clear and simple instructions, attempted to orient to reality, monitored behaviors and provided redirection and medication as needed, provided active listening and positive encouragement, encouraged participation on the unit, and maintained Q 15 min safety checks. Restraints/seclusion/emergency medication: N/A Justification of Continued Inpatient Treatment: Continues to monitor medication adjustments and maintain a safe environment. Encourage milieu involvement.
[2019-12-20] MEDS: PALIPERIDONE 3 MG TAB.ER.24 PO SCH (20:08)
[2019-12-20 20:47] VITALS: BP 147/97
--- NOTE | 2019-12-21 00:40 | NUR ---
Nursing Progress Note: Legal hold: Client on voluntary/involuntary status for GD Report received from nurseMaddie with use of SBAR Why are they here: Pt admitted to [facility] today at 0950 on 5150 for gravely disabled. Pt states "Im going to be executed", and "my enemy is having decided to end my life". Pt has decided to "Execute myself first." Pt has been off his medications for 2 weeks. History of Bipolar, schizophrenia, meth abuse. 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 Pt was found in a motel with rotting food unable to care for self. Assessment What has happened this shift: Pt was in rec room watching tv at change of shift. Pt continues to be friendly and cooperative but is guarded and seems disinterested in talking. Pt does not want to discuss anything further than saying, "I'm great." pt spent the evening mostly watching tv, but was seen interacting with other pt's appropriately. pt accepted hs meds without issue. Pt later woke up requesting a snack and was given a pb and j sandwich. S/I, H/I:denies A/VH: denies Sleep: see sleep assessment ADL's: independent Group attendance:no Were meds taken:yes Any med S/E none Mental Status Exam Appearance: Dressed in green scrubs Eye contact:good Behavior:cooperative Speech:clear, poverty of speech. Mood: depressed Affect:depressed Thought process:linear Thought Content:unknown Cognition:A&Ox3 Insight:poor Judgment:poor Interventions PRN's used:none Therapeutic interventions: Maintained a safe and supportive environment, ensured contract for safety, provided clear and simple instructions, attempted to orient to reality, monitored behaviors and provided redirection and medication as needed, provided active listening and positive encouragement, encouraged participation on the unit, and maintained Q 15 min safety checks. Restraints/seclusion/emergency medication: N/A Justification of Continued Inpatient Treatment: Continues to monitor medication adjustments and maintain a safe environment.
[2019-12-21 08:00] VITALS: BP 136/89
[2019-12-21] MEDS: lactose-reduced food (Ensure Enlive) - 237ml bottle PO SCH ×3 (08:25→18:03)
[2019-12-21] MEDS: propranolol 10mg tablet PO SCH ×2 (08:26→20:34)
[2019-12-21] MEDS: amLODIPine 5mg tablet PO SCH (08:27)
--- NOTE | 2019-12-21 16:58 | NUR ---
Nursing Progress Note Legal hold: 525/ GD Report received from nurse with use of SBAR Why are they here: Pt admitted to [facility] today at 0950 on 5150 for gravely disabled. Pt states "Im going to be executed", and "my enemy is having decided to end my life". Pt has decided to "Execute myself first." Pt has been off his medications for 2 weeks. History of Bipolar, schizophrenia, meth abuse. Pt plans to collar pointer front of traffic or jump off of a bridge. Pt was found in a motel with rotting food unable to care for self. Assessment What has happened this shift: Received Pt in bed sleeping w/o distress at beginning of shift. Pt cooperative with vitals and returned to sleep. He took AM meds w/o qs or issue and took nap. Pt tolerated assessments and conversation well. Pt talked about being from [place] and reminisced with this RN about baseball in the 70s. Pt reports that he moved to [place] to be near supportive family. Pt reports vague SI without a plan. Isolated to room for large portions of the day and came out mostly for meals and snacks. S/I, H/I: + SI/Vague A/VH: Denies Sleep: Napped intermittently throughout the day ADL's: Independent Group attendance: No Were meds taken: Yes Any med S/E: Denies Mental Status Exam Appearance: Dressed in green scrubs Eye contact: Good Behavior: Cooperative, isolates to room, socializes minimally Speech: Clear, poverty of speech. Mood: Euthymic Affect: Blunted Thought process: Linear, thought blocking. Thought Content: unable to assess Cognition: A&Ox3 Insight: Poor Judgement: Poor Interventions PRN's used: None Therapeutic interventions: Maintained a safe and supportive environment, ensured contract for safety, provided clear and simple instructions, attempted to orient to reality, monitored behaviors and provided redirection and medication as needed, provided active listening and positive encouragement, encouraged participation on the unit, and maintained Q 15 min safety checks. Restraints/seclusion/emergency medication: N/A Justification of Continued Inpatient Treatment: Continues to monitor medication adjustments and maintain a safe environment. Encourage milieu involvement.
[2019-12-21 19:00] VITALS: BP 139/93
[2019-12-21] MEDS: PALIPERIDONE 3 MG TAB.ER.24 PO SCH (20:34)
--- NOTE | 2019-12-22 02:34 | NUR ---
Nursing Progress Note: Legal hold: 525 Client on involuntary status for GD Report received from DIO Perkins with use of SBAR Why are they here: Pt admitted to [facility] today at 0950 on 5150 for gravely disabled. Pt states "Im going to be executed", and "my enemy is having decided to end my life". Pt has decided to "Execute myself first." Pt has been off his medications for 2 weeks. History of Bipolar, schizophrenia, meth abuse. 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 Pt was found in a motel with rotting food unable to care for self. Assessment What has happened this shift: The patient was seen at bedside for 1:1. He was just sitting there, "I'm just sitting here thinking about my plans. I have a plan A...but I'm still working on plan B. He states that he's happy here, "but eventually 'they' will catch up to me. He doesn't say who 'they' are, but he fears 'them.' The patient states he needs a new place where he can feel safe. He feels safe here, but when he leaves, he will need to feel secure. No behavioral issues this shift. He denies any SI/HI, or AV/H. Went to sleep after HS med pass. S/I, H/I: Denies A/VH: Denies Sleep: see sleep assessment ADL's: independent Group attendance:no Were meds taken:yes Any med S/E none Mental Status Exam: Appearance: Older man dressed in green scrubs Eye contact: Good Behavior: Friendly, cooperative, guarded Speech: Clear, poverty of speech. Mood: Depressed Affect: Blunted Thought process: Linear Thought Content: Unknown Cognition:A&Ox3 Insight:poor Judgment:poor Interventions: PRN's used: None Therapeutic interventions: Maintained a safe and supportive environment, ensured contract for safety, provided clear and simple instructions, attempted to orient to reality, monitored behaviors and provided redirection and medication as needed, provided active listening and positive encouragement, encouraged participation on the unit, and maintained Q 15 min safety checks. Restraints/seclusion/emergency medication: N/A Justification of Continued Inpatient Treatment: Continues to monitor medication adjustments and maintain a safe environment.
[2019-12-22 07:34] VITALS: BP 133/86
[2019-12-22] MEDS: propranolol 10mg tablet PO SCH ×2 (08:02→20:08)
[2019-12-22] MEDS: amLODIPine 5mg tablet PO SCH (08:02)
[2019-12-22] MEDS: lactose-reduced food (Ensure Enlive) - 237ml bottle PO SCH ×3 (08:03→18:00)
--- NOTE | 2019-12-22 17:56 | NUR ---
Nursing Progress Note: Legal hold: Client on 5250 involuntary status for GD Report received from Jaida Rea charge nurse with use of SBAR Why are they here: Pt admitted to [facility] today at 0950 on 5150 for gravely disabled. Pt states "Im going to be executed", and "my enemy is having decided to end my life". Pt has decided to "Execute myself first." Pt has been off his medications for 2 weeks. History of Bipolar, schizophrenia, meth abuse. 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 Pt was found in a motel with rotting food unable to care for self. Assessment What has happened this shift: Received pt asleep in bed. Pt awoke for breakfast and took all medications. Pt. ate all meals in the community room. Pt. went back to his room and slept after breakfast. Pt. awake and laying in bed for 1:1 assessment. Pt. denies SI/HI, A/V hallucinations. Pt. reports he feels, "OK". Pt. offers minimal information during assessment. Pt. isolated to his room most of the day. S/I, H/I: + SI without a plan. Pt. seen in Rec Room in the afternoon, listening to music. A/VH: denies Sleep: Napped intermittently throughout the day. ADL's: independent Group attendance: no Were meds taken: yes Any med S/E: Denies Mental Status Exam Appearance: Dressed in green scrubs Eye contact: good Behavior: cooperative, isolates to room, socializes minimally Speech: clear, poverty of speech. Mood: Euthymic Affect: blunted Thought process: linear, thought blocking. Thought Content: Circumstantial. Cognition: A&Ox3 Insight: poor Judgement: poor Interventions PRN's used: none Therapeutic interventions: Maintained a safe and supportive environment, ensured contract for safety, provided clear and simple instructions, attempted to orient to reality, monitored behaviors and provided redirection and medication as needed, provided active listening and positive encouragement, encouraged participation on the unit, and maintained Q 15 min safety checks. Restraints/seclusion/emergency medication: N/A Justification of Continued Inpatient Treatment: Continues to monitor medication adjustments and maintain a safe environment. Encourage milieu involvement. Addendum: 12/22/19 at 1825 by Jayesh Vigil RN CLARIFICATION: Pt. ronn carrasco.
[2019-12-22 20:00] VITALS: BP 146/98
[2019-12-22] MEDS: PALIPERIDONE 3 MG TAB.ER.24 PO SCH (20:07)
--- NOTE | 2019-12-23 00:17 | NUR ---
Nursing Progress Note: Legal hold: Client on 5250 involuntary status for GD Report received from Jaida Rea charge nurse with use of SBAR Why are they here: Pt admitted to [facility] today at 0950 on 5150 for gravely disabled. Pt states "Im going to be executed", and "my enemy is having decided to end my life". Pt has decided to "Execute myself first." Pt has been off his medications for 2 weeks. History of Bipolar, schizophrenia, meth abuse. 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 Pt was found in a motel with rotting food unable to care for self. Assessment What has happened this shift: Patient was asleep in his room at shift change. had to awaken pt for hs meds. After taking his meds he asked if snack was available. Told pt there still eating snack in group room and you need to get up and go see if you can get some. Pt sat in group room eating his snack then went back to bed. SI/HI:denies AH/VH: denies Sleep: Napped intermittently throughout the day. ADL's: independent Group attendance: no Were meds taken: yes Any med S/E: Denies Mental Status Exam Appearance: Dressed in green scrubs Eye contact: good Behavior: cooperative, isolates to room, socializes minimally Speech: clear, poverty of speech. Mood: Euthymic Affect: blunted Thought process: linear, thought blocking. Thought Content: Circumstantial. Cognition: A&Ox3 Insight: poor Judgement: poor Interventions PRN's used: none Therapeutic interventions: Maintained a safe and supportive environment, ensured contract for safety, provided clear and simple instructions, attempted to orient to reality, monitored behaviors and provided redirection and medication as needed, provided active listening and positive encouragement, encouraged participation on the unit, and maintained Q 15 min safety checks. Restraints/seclusion/emergency medication: N/A Justification of Continued Inpatient Treatment: Continues to monitor medication adjustments and maintain a safe environment. Encourage milieu involvement.
[2019-12-23 07:51] VITALS: BP 138/89
[2019-12-23] MEDS: amLODIPine 5mg tablet PO SCH (08:01)
[2019-12-23] MEDS: propranolol 10mg tablet PO SCH ×2 (08:01→20:19)
[2019-12-23] MEDS: lactose-reduced food (Ensure Enlive) - 237ml bottle PO SCH ×3 (08:06→18:02)
--- NOTE | 2019-12-23 17:50 | NUR ---
Nursing Progress Note: Legal hold: Client on 5250 involuntary status for GD Report received from Jaida Rea charge nurse with use of SBAR Why are they here: Pt admitted to [facility] today at 0950 on 5150 for gravely disabled. Pt states "Im going to be executed", and "my enemy is having decided to end my life". Pt has decided to "Execute myself first." Pt has been off his medications for 2 weeks. History of Bipolar, schizophrenia, meth abuse. 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 Pt was found in a motel with rotting food unable to care for self. Assessment What has happened this shift: Received pt asleep in bed. Pt awoke for breakfast and took all medications. Pt. ate all meals in the community room. Pt. went back to his room and slept after breakfast. 1:1 done at bedside, pt. denies SI/HI, A/V hallucinations. Pt. gives minimal respones to RN's questions. Pt. isolates to room most of the day, sleeping intermittently. A/VH: denies Sleep: Napped intermittently throughout the day. ADL's: independent Group attendance: no Were meds taken: yes Any med S/E: Denies Mental Status Exam Appearance: Dressed in green scrubs Eye contact: good Behavior: cooperative, isolates to room, socializes minimally Speech: clear, poverty of speech. Mood: Euthymic Affect: blunted Thought process: linear, thought blocking. Thought Content: Circumstantial. Cognition: A&Ox3 Insight: poor Judgement: poor Interventions PRN's used: none Therapeutic interventions: Maintained a safe and supportive environment, ensured contract for safety, provided clear and simple instructions, attempted to orient to reality, monitored behaviors and provided redirection and medication as needed, provided active listening and positive encouragement, encouraged participation on the unit, and maintained Q 15 min safety checks. Restraints/seclusion/emergency medication: N/A Justification of Continued Inpatient Treatment: Continues to monitor medication adjustments and maintain a safe environment. Encourage milieu involvement.
[2019-12-23 20:00] VITALS: BP 137/96
[2019-12-23] MEDS: PALIPERIDONE 3 MG TAB.ER.24 PO SCH (20:19)
[2019-12-23 20:36] VITALS: BP 137/96
--- NOTE | 2019-12-23 23:55 | NUR ---
Nursing Progress Note: Legal hold: Client on 5250 involuntary status for GD Report received from Maddie charge nurse with use of SBAR Why are they here: Pt admitted to [facility] today at 0950 on 5150 for gravely disabled. Pt states "Im going to be executed", and "my enemy is having decided to end my life". Pt has decided to "Execute myself first." Pt has been off his medications for 2 weeks. History of Bipolar, schizophrenia, meth abuse. 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 Pt was found in a motel with rotting food unable to care for self. Assessment What has happened this shift: Patient asleep in bed at the start of shift.Did not wake up till med pass was med compliant and returned to sleep. Pt was reminded that he needs to get up and move around the unit and socialize. Pt said its ok Im good. A/VH: denies Sleep: Napped intermittently throughout the day. ADL's: independent Group attendance: no Were meds taken: yes Any med S/E: Denies Mental Status Exam Appearance: Dressed in green scrubs Eye contact: good Behavior: cooperative, isolates to room, socializes minimally Speech: clear, poverty of speech. Mood: Euthymic Affect: blunted Thought process: linear, thought blocking. Thought Content: Circumstantial. Cognition: A&Ox3 Insight: poor Judgement: poor Interventions PRN's used: none Therapeutic interventions: Maintained a safe and supportive environment, ensured contract for safety, provided clear and simple instructions, attempted to orient to reality, monitored behaviors and provided redirection and medication as needed, provided active listening and positive encouragement, encouraged participation on the unit, and maintained Q 15 min safety checks. Restraints/seclusion/emergency medication: N/A Justification of Continued Inpatient Treatment: Continues to monitor medication adjustments and maintain a safe environment. Encourage milieu involvement.
[2019-12-24 08:00] VITALS: BP 131/94
[2019-12-24] MEDS: amLODIPine 5mg tablet PO SCH (08:00)
[2019-12-24] MEDS: propranolol 10mg tablet PO SCH ×2 (08:00→20:09)
[2019-12-24] MEDS: lactose-reduced food (Ensure Enlive) - 237ml bottle PO SCH ×3 (08:33→18:15)
--- NOTE | 2019-12-24 13:18 | NUR ---
Nursing Progress Note: Legal hold: Client on 525 involuntary status for GD Report received from nurse with use of SBAR Why are they here: Pt admitted to [facility] today at 0950 on 5150 for gravely disabled. Pt states "Im going to be executed", and "my enemy is having decided to end my life". Pt has decided to "Execute myself first." Pt has been off his medications for 2 weeks. History of Bipolar, schizophrenia, meth abuse. 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 Pt was found in a motel with rotting food unable to care for self. Assessment What has happened this shift: Patient was asleep at change of shift and up for breakfast. Patient is soft spoken. Patient states he is no longer feeling suicidal and hasn't heard the voices for about 5 days. Patient states his thinking is good right now. Patient smiles and is friendly with the RN. SI/HI, A/V hallucinations. A/VH: denies Sleep: Napped intermittently throughout the day. ADL's: independent Group attendance: no Were meds taken: yes Any med S/E: Denies Mental Status Exam Appearance: Dressed in green scrubs Eye contact: good Behavior: cooperative, isolates to room, socializes minimally Speech: clear, poverty of speech. Mood: Euthymic Affect: Pleasant Thought process: linear Thought Content: Circumstantial. Cognition: A&Ox3 Insight: poor Judgement: poor Interventions PRN's used: none Therapeutic interventions: Maintained a safe and supportive environment, ensured contract for safety, provided clear and simple instructions, attempted to orient to reality, monitored behaviors and provided redirection and medication as needed, provided active listening and positive encouragement, encouraged participation on the unit, and maintained Q 15 min safety checks. Restraints/seclusion/emergency medication: N/A Justification of Continued Inpatient Treatment: Continues to monitor medication adjustments and maintain a safe environment. Encourage milieu involvement.
[2019-12-24 20:00] VITALS: BP 133/88
[2019-12-24] MEDS: PALIPERIDONE 3 MG TAB.ER.24 PO SCH (20:09)
--- NOTE | 2019-12-25 00:28 | NUR ---
Nursing Progress Note: Legal hold: Client on 5250 involuntary status for GD Report received from nurse Eulogio RN with use of SBAR Why are they here: Pt admitted to [facility] today at 0950 on 5150 for gravely disabled. Pt states "Im going to be executed", and "my enemy is having decided to end my life". Pt has decided to "Execute myself first." Pt has been off his medications for 2 weeks. History of Bipolar, schizophrenia, meth abuse. 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 Pt was found in a motel with rotting food unable to care for self. Assessment What has happened this shift: Patient was up and pacing the suresh with a peer. Pt stated that he had to get up and move around he was getting stiff just lying in bed. Pt ate snack in group room was med compliant. SI/HI, A/V hallucinations. A/VH: denies Sleep: Napped intermittently throughout the day. ADL's: independent Group attendance: no Were meds taken: yes Any med S/E: Denies Mental Status Exam Appearance: Dressed in green scrubs Eye contact: good Behavior: cooperative, isolates to room, socializes minimally Speech: clear, poverty of speech. Mood: Euthymic Affect: Pleasant Thought process: linear Thought Content: Circumstantial. Cognition: A&Ox3 Insight: poor Judgement: poor Interventions PRN's used: none Therapeutic interventions: Maintained a safe and supportive environment, ensured contract for safety, provided clear and simple instructions, attempted to orient to reality, monitored behaviors and provided redirection and medication as needed, provided active listening and positive encouragement, encouraged participation on the unit, and maintained Q 15 min safety checks. Restraints/seclusion/emergency medication: N/A Justification of Continued Inpatient Treatment: Continues to monitor medication adjustments and maintain a safe environment. Encourage milieu involvement.
[2019-12-25 08:00] VITALS: BP 126/76
[2019-12-25 08:21] VITALS: BP_SYST 126
[2019-12-25] MEDS: propranolol 10mg tablet PO SCH (08:21)
[2019-12-25] MEDS: amLODIPine 5mg tablet PO SCH (08:21)
[2019-12-25] MEDS: lactose-reduced food (Ensure Enlive) - 237ml bottle PO SCH (08:22)
[2019-12-25] MEDS ORDERED: PROP10TA10 PO (11:17)
[2019-12-25] MEDS ORDERED: AMLO5TAB PO (11:17)
--- NOTE | 2019-12-25 11:45 | NUR ---
swimming coach Note: Patient given discharge instructions. Patient does not want to go and says he will run in front of traffic if he doesn't stay her until the first (when he gets paid). Patient agreed to sign paperwork. Patient verbalized understanding. RN gave patient a couple of sack lunches and a bus ticket. Patient has all his belongings, including discharge paperwork and RXs for his meds. Patient taken to [facility] by [facility] oiling truck driver so he can restart services. Patient has flat affect, ambulatory, steady gait.
--- NOTE | 2019-12-26 08:33 | NUR ---
Pt was d/c yesterday, picked up by [facility] and taken to [facility] to re-establish outpatient services. SS referral closed. Addendum: 12/26/19 at 0834 by Mariya Romero SS Amended: Links added.
== END 2019-12-25 11:45 | disposition short-term general hospital (02) | DRG 750 ==
LOC: ADULT MH 10:27
PROVIDERS: ADMIT Psychiatry & Neurology Psychiatry; ATTEND Psychiatry & Neurology Psychiatry
DX: F20.0 Paranoid schizophrenia (principal); D64.9 Anemia, unspecified; F15.20 Other stimulant dependence, uncomplicated; I10 Essential (primary) hypertension; R45.851 Suicidal ideations; Z88.8 Allergy status to other drugs, medicaments and biological substances; Z79.899 Other long term (current) drug therapy; Z71.51 Drug abuse counseling and surveillance of drug abuser; Z76.5 Malingerer [conscious simulation]; Z71.6 Tobacco abuse counseling
CPT/HCPCS: 36415; 80061; 83036; 87081

== ENCOUNTER 2019-12-28 20:06 | Emergency (ER) | payer MEDICAID ==
[~2019-12-28] VITALS: Ht 193 cm; Wt 70.5 kg
[2019-12-28 20:21] VITALS: BP 144/109
--- NOTE | 2019-12-28 20:49 | NUR ---
Pt. placed in room 21, changed into green scubs, tech bedside inventorying pt. belongings for lock up.
[2019-12-28 21:38] LABS: BASOPHILS % (AUTO) 0.2 % (0-1); EOSINOPHILS # (AUTO) 0.1 X10'3 (0-0.9); EOSINOPHILS % (AUTO) 1.4 % (0-6); HEMATOCRIT 40.7 % (42.0-52.0); HEMOGLOBIN 13.5 g/dl (14.0-17.9); LYMPHOCYTES % (AUTO) 17.3 % (21-51); MEAN CORPUSCULAR HEMOGLOBIN 30.5 PG (27.0-31.0); MEAN CORPUSCULAR HGB CONC 33.1 g/dL (33.0-36.5); MEAN CORPUSCULAR VOLUME 92.1 FL (78-98); MEAN PLATELET VOLUME 8.6 FL (7.4-10.4); MONOCYTES # (AUTO) 0.4 X10'3 (0-0.9); MONOCYTES % (AUTO) 6.5 % (2-12); NEUTROPHILS # (AUTO) 4.3 X10'3 (1.8-7.7); NEUTROPHILS % (AUTO) 74.6 % (42-75); PLATELET COUNT 197 X10'3 (140-440); RED BLOOD COUNT 4.42 X10'6 (4.70-6.10); RED CELL DISTRIBUTION WIDTH 14.2 % (11.5-14.5); WHITE BLOOD COUNT 5.7 X10'3 (4.5-11.0)
[2019-12-28 22:01] LABS: ALANINE AMINOTRANSFERASE 31 U/L (12-78); ALBUMIN 4.3 G/DL (3.4-5.0); ALBUMIN/GLOBULIN RATIO 1.1 (1.1-1.5); ALKALINE PHOSPHATASE 68 IU/L (46-116); ANION GAP 8 (8-16); ASPARTATE AMINO TRANSFERASE 32 U/L (10-37); BILIRUBIN,TOTAL 0.9 MG/DL (0.1-1.0); BLOOD UREA NITROGEN 24 MG/DL (7-18); BUN/CREATININE RATIO 20.3 (5.4-32.0); CALCIUM 9.9 MG/DL (8.5-10.1); CHLORIDE 104 MMOL/L (99-107); CREATININE 1.18 MG/DL (0.60-1.10); GLUCOSE 87 MG/DL (70-104); SODIUM 142 MMOL/L (135-145); TOTAL PROTEIN 8.3 G/DL (6.4-8.2); eGFR 76 ML/MIN
[2019-12-28 22:08] LABS: ACETAMINOPHEN < 2.0 UG/ML (10-30); ETHANOL < 0.010 GM/DL (0.0-0.010)
== END 2019-12-28 23:29 | disposition home or self-care (01) ==
LOC: ER 20:06
DX: F22 Delusional disorders (principal); R45.851 Suicidal ideations; I10 Essential (primary) hypertension; F31.9 Bipolar disorder, unspecified; F20.9 Schizophrenia, unspecified; F12.90 Cannabis use, unspecified, uncomplicated; F15.90 Other stimulant use, unspecified, uncomplicated; Z98.890 Other specified postprocedural states; Z60.2 Problems related to living alone; Z59.0 Homelessness; Z56.0 Unemployment, unspecified; Z88.8 Allergy status to other drugs, medicaments and biological substances; Z79.899 Other long term (current) drug therapy
CPT/HCPCS: 36415; 80053; 80320; 80329; 85025; 99285